=== PATIENT | female | born 1965 | race Caucasian/White ===

== ENCOUNTER 2016-08-20 16:04 | Emergency (ER) | payer OTHER ==
[~2016-08-20 16:04] MED LIST: CELE10TA; COLA100C2; IBUP800T; MULTIVIT; PERC5TAB8; TOPI50TA
--- NOTE | 2016-08-20 18:23 | EDDOCDS ---
Nurse's Notes [facility] Name: Yasmine Rahman Age: 51 yrs Sex: Female : 1965 Arrival Date: 08/20/2016 Time: 16:04 Bed PR Private MD: KEISHA Hines Diagnosis: Visual disturbances Presentation: 08/20 16:12 Presenting complaint: Patient states: cataract surgery at 46 years. Patient states has hs1 hx of blood in back of eye and had to follow up with eye dr from surgery. Patient concerned that it is coming back as her right eye is cloudy and she is having difficulty seeing out of the eye. Patient concerned that she cannot see. Mechanism of Injury: No Mechanism of Injury. The patient reports a positive loss of vision. The patient's loss of vision began gradually. Adult Sepsis Screening: The patient does not have new or worsening altered mentation. Patient's respiratory rate is less than 22. Systolic blood pressure is greater than 100. Patient has a qSOFA score of 0- Negative Sepsis Screen. Suicide/Homicide risk assessment- the patient denies having any suicidal and/or homicidal ideations and does not present with any other emotional, behavioral or mental health complaints. Status: Patient is not a vehicle service agent or dependent. Transition of care: patient was not received from another setting of care. 16:12 Acuity: SHANIQUE Level 3 hs1 16:12 Method Of Arrival: Walkin/Carried/Asstd hs1 Triage Assessment: 16:15 General: Appears in no apparent distress, Behavior is appropriate for age, cooperative. hs1 Pain: Denies pain. HIV screening NA for this visit Offered previously. EENT: Eyes patient reports cloudy vision. 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 none - PMHx: none; - PSHx: Tubal ligation; Hysterectomy (August 29, 2009); Cataract Surgery- Bilateral; Hernia repair- Umbilical; - Social history: Smoking status: Patient states was never smoker of tobacco. No barriers to communication noted, The patient speaks fluent Austrian, Speaks appropriately for age. - Family history: Not pertinent. - : The pt / caregiver states he / she is not on anticoagulants. Home medication list is obtained from the patient. - Exposure Risk Screening:: None identified. Screenin:21 Screening information is obtained from the patient. Fall risk: No risks identified. js13 Assistance ADL's: requires no assistance with activities of daily living. Abuse/DV Screen: The patient / caregiver reports he/she is: not in a situation that causes fear, pain or injury. Nutritional screening: No deficits noted. Advance Directives: There is no active DNR order. home support is adequate. Assessment: 18:21 General: Appears in no apparent distress, comfortable, Behavior is appropriate for age, js13 cooperative. Pain: Denies pain. Neurological: Level of Consciousness is awake, alert. EENT: Sclera/Cornea are clear in outer aspect of conjuctiva of right eye, iris of right eye, inner aspect of conjuctiva of right eye, outer aspect of conjuctiva of left eye, iris of left eye and inner aspect of conjunctiva of left eye. Respiratory: Airway is patent Respiratory effort is even, unlabored, Respiratory pattern is regular, symmetrical. Derm: Skin is pink, warm & dry. Vital Signs: 16:05 BP 159 / 84; Pulse 100; Resp 18 S; Temp 97.6(O); Pulse Ox 96% on R/A; Weight 99.79 kg dd6 (R); Height 5 ft. 3 in. (160.02 cm) (R); 18:20 BP 147 / 87 RA Sitting (auto/lg); Pulse 84; Resp 22; Temp 97.3; Pulse Ox 95% on R/A; ar3 Pain 2/10; 16:05 Body Mass Index 38.97 (99.79 kg, 160.02 cm) dd6 Vitals: 16:05 Log In Time: August 20, 2016 at 16:03. dd6 Visual Acuity: 17:51 Left Eye Visual acuity 20/40, Pupil size 4 mm, Normal, React To Light, Reactive To ml6 Accomodation; Right Eye Visual acuity 20/200, Pupil size 4 mm, Normal, React To Light, Reactive To Accomodation; Both Eyes Visual acuity 20/40; Without Lenses; ED Course: 16:05 Patient visited by Fan Coello PCA. dd6 16:05 [place] [facility] [place] dd6 16:05 Patient moved to Waiting dd6 16:06 Patient moved to Pre RCE dd6 16:14 Triage Initiated hs1 17:09 Patient moved to Triage 1 js13 17:36 [facility] cc10 17:36 Sarthak Rao MD is Attending Physician. cc10 17:36 Patient visited by Barney Sullivan PA-C. cc10 17:36 Patient visited by Barney Sullivan PA-C. cc10 17:55 Patient moved to PR2 / 26 ml6 18:15 Audie Stinson is Referral Physician. cc10 18:21 Patient visited by Becca Valente PCA. ar3 18:21 The patient / caregiver is instructed regarding the plan of care and ED course. js13 18:21 No IV's were initiated during this patient's visit. No procedures done that require js13 assistance. Order Results: There are currently no results for this order. Outcome: 18:15 Discharge ordered by Provider. cc10 18:21 Discharge Assessment: Patient awake, alert and oriented x 3. No cognitive and/or js13 functional deficits noted. Patient verbalized understanding of disposition instructions. patient administered narcotics - no. The following High Risk Discharge criteria are identified: None. Discharged to home ambulatory. Condition: stable. Discharge instructions given to patient, Instructed on discharge instructions, follow up and referral plans. Demonstrated understanding of instructions, Pt was receptive of discharge instructions/ teaching. No special radiology studies were completed. Property :Personal belongings accompany Pt. 18:23 Patient left the ED. js13 Signatures: Fan Coello, SENIOR ACCOUNTS PAYABLE CLERK SENIOR ACCOUNTS PAYABLE CLERK dd6 Bernabe Parker RN RN ml6 Becca Valente, SENIOR ACCOUNTS PAYABLE CLERK SENIOR ACCOUNTS PAYABLE CLERK ar3 Funmi Morales RN RN hs1 Kristi Ortiz RN RN js13 Barney Sullivan PA-C PA-C cc10 MTDD
--- NOTE | 2016-08-20 18:23 | EDDOCDS ---
Physician Documentation [facility] Name: Yasmine Rahman Age: 51 yrs Sex: Female : 1965 Arrival Date: 08/20/2016 Time: 16:04 Bed PR Private MD: [place] [facility] [place]position: 08/20/16 18:15 Discharged to Home/Self Care. Impression: Visual disturbances. - Condition is Stable. - Discharge Instructions: Visual Disturbances. - Medication Reconciliation form. - Follow up: Emergency Department; When: As needed. Follow up: Audie Stinson; When: Tomorrow; Reason: Wound/Symptom Recheck, Recheck today's complaints, Continuance of care. - Problem is an ongoing problem. - Symptoms are unchanged. Historical: - Allergies: no known allergies; - Home Meds: 1. none - PMHx: none; - PSHx: Tubal ligation; Hysterectomy (August 29, 2009); Cataract Surgery- Bilateral; Hernia repair- Umbilical; - Social history: Smoking status: Patient states was never smoker of tobacco. No barriers to communication noted, The patient speaks fluent Occitan, Speaks appropriately for age. - Family history: Not pertinent. - : The pt / caregiver states he / she is not on anticoagulants. Home medication list is obtained from the patient. - Exposure Risk Screening:: None identified. 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 3 in. (160.02 cm) (R); 18:20 BP 147 / 87 RA Sitting (auto/lg); Pulse 84; Resp 22; Temp 97.3; Pulse Ox 95% on R/A; ar3 Pain 2/10; 16:05 Body Mass Index 38.97 (99.79 kg, 160.02 cm) dd6 Visual Acuity: 17:51 Left Eye Visual acuity 20/40, Pupil size 4 mm, Normal, React To Light, Reactive To ml6 Accomodation; Right Eye Visual acuity 20/200, Pupil size 4 mm, Normal, React To Light, Reactive To Accomodation; Both Eyes Visual acuity 20/40; Without Lenses; MDM: 17:42 Visual Acuity ordered. cc10 Signatures: Funmi Morales, RN RN hs1 Kristi OrtizRN RN js13 Barney Sullivan, NELIDA PANori cc10 MTDD
--- NOTE | 2016-08-22 19:23 | EDDOCDS ---
Physician Documentation [facility] Name: Yasmine Rahman Age: 51 yrs Sex: Female : 1965 Arrival Date: 08/20/2016 Time: 16:04 Bed PR Private MD: Donny [facility] Disposition: 08/20/16 18:15 Discharged to Home/Self Care. Impression: Visual disturbances. - Condition is Stable. - Discharge Instructions: Visual Disturbances. - Medication Reconciliation form. - Follow up: Emergency Department; When: As needed. Follow up: Audie Stinson; When: Tomorrow; Reason: Wound/Symptom Recheck, Recheck today's complaints, Continuance of care. - Problem is an ongoing problem. - Symptoms are unchanged. Historical: - Allergies: no known allergies; - Home Meds: 1. none - PMHx: none; - PSHx: Tubal ligation; Hysterectomy (August 29, 2009); Cataract Surgery- Bilateral; Hernia repair- Umbilical; - Social history: Smoking status: Patient states was never smoker of tobacco. No barriers to communication noted, The patient speaks fluent Maltese, Speaks appropriately for age. - Family history: Not pertinent. - : The pt / caregiver states he / she is not on anticoagulants. Home medication list is obtained from the patient. - Exposure Risk Screening:: None identified. 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 3 in. (160.02 cm) (R); 18:20 BP 147 / 87 RA Sitting (auto/lg); Pulse 84; Resp 22; Temp 97.3; Pulse Ox 95% on R/A; ar3 Pain 2/10; 16:05 Body Mass Index 38.97 (99.79 kg, 160.02 cm) dd6 Visual Acuity: 17:51 Left Eye Visual acuity 20/40, Pupil size 4 mm, Normal, React To Light, Reactive To ml6 Accomodation; Right Eye Visual acuity 20/200, Pupil size 4 mm, Normal, React To Light, Reactive To Accomodation; Both Eyes Visual acuity 20/40; Without Lenses; MDM: 17:42 Visual Acuity ordered. cc10 08/21 12:15 T-Sheet-- Draft Copy was scanned into [employer] and attached to record. gb Signatures: Janneth Snow, Reg Reg gb Funmi Morales RN RN hs1 Kristi OrtizRN RN js13 Barney Sullivan, TERESOC PAMoonC cc10 The chart was reviewed and I authenticate all verbal orders and agree with the evaluation and treatment provided.Attachments: 12:15 T-Sheet-- Draft Copy gb Chart Complete MTDD
--- NOTE | 2016-08-22 19:23 | EDDOCDS ---
Nurse's Notes [facility] Name: Yasmine Rahman Age: 51 yrs Sex: Female : 1965 Arrival Date: 08/20/2016 Time: 16:04 Bed PR Private MD: KEISHA Hines Diagnosis: Visual disturbances Presentation: 08/20 16:12 Presenting complaint: Patient states: cataract surgery at 46 years. Patient states has hs1 hx of blood in back of eye and had to follow up with eye dr from surgery. Patient concerned that it is coming back as her right eye is cloudy and she is having difficulty seeing out of the eye. Patient concerned that she cannot see. Mechanism of Injury: No Mechanism of Injury. The patient reports a positive loss of vision. The patient's loss of vision began gradually. Adult Sepsis Screening: The patient does not have new or worsening altered mentation. Patient's respiratory rate is less than 22. Systolic blood pressure is greater than 100. Patient has a qSOFA score of 0- Negative Sepsis Screen. Suicide/Homicide risk assessment- the patient denies having any suicidal and/or homicidal ideations and does not present with any other emotional, behavioral or mental health complaints. 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 Transition of care: patient was not received from another setting of care. 16:12 Acuity: SHANIQUE Level 3 hs1 16:12 Method Of Arrival: Walkin/Carried/Asstd hs1 Triage Assessment: 16:15 General: Appears in no apparent distress, Behavior is appropriate for age, cooperative. hs1 Pain: Denies pain. HIV screening NA for this visit Offered previously. EENT: Eyes patient reports cloudy vision. 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 none - PMHx: none; - PSHx: Tubal ligation; Hysterectomy (August 29, 2009); Cataract Surgery- Bilateral; Hernia repair- Umbilical; - Social history: Smoking status: Patient states was never smoker of tobacco. No barriers to communication noted, The patient speaks fluent Iraqi, Speaks appropriately for age. - Family history: Not pertinent. - : The pt / caregiver states he / she is not on anticoagulants. Home medication list is obtained from the patient. - Exposure Risk Screening:: None identified. Screenin:21 Screening information is obtained from the patient. Fall risk: No risks identified. js13 Assistance ADL's: requires no assistance with activities of daily living. Abuse/DV Screen: The patient / caregiver reports he/she is: not in a situation that causes fear, pain or injury. Nutritional screening: No deficits noted. Advance Directives: There is no active DNR order. home support is adequate. Assessment: 18:21 General: Appears in no apparent distress, comfortable, Behavior is appropriate for age, js13 cooperative. Pain: Denies pain. Neurological: Level of Consciousness is awake, alert. EENT: Sclera/Cornea are clear in outer aspect of conjuctiva of right eye, iris of right eye, inner aspect of conjuctiva of right eye, outer aspect of conjuctiva of left eye, iris of left eye and inner aspect of conjunctiva of left eye. Respiratory: Airway is patent Respiratory effort is even, unlabored, Respiratory pattern is regular, symmetrical. Derm: Skin is pink, warm & dry. Vital Signs: 16:05 BP 159 / 84; Pulse 100; Resp 18 S; Temp 97.6(O); Pulse Ox 96% on R/A; Weight 99.79 kg dd6 (R); Height 5 ft. 3 in. (160.02 cm) (R); 18:20 BP 147 / 87 RA Sitting (auto/lg); Pulse 84; Resp 22; Temp 97.3; Pulse Ox 95% on R/A; ar3 Pain 2/10; 16:05 Body Mass Index 38.97 (99.79 kg, 160.02 cm) dd6 Vitals: 16:05 Log In Time: August 20, 2016 at 16:03. dd6 Visual Acuity: 17:51 Left Eye Visual acuity 20/40, Pupil size 4 mm, Normal, React To Light, Reactive To ml6 Accomodation; Right Eye Visual acuity 20/200, Pupil size 4 mm, Normal, React To Light, Reactive To Accomodation; Both Eyes Visual acuity 20/40; Without Lenses; ED Course: 16:05 Patient visited by Fan Coello PCA. dd6 16:05 Donny [facility] is Private Physician. dd6 16:05 Patient moved to Waiting dd6 16:06 Patient moved to Pre RCE dd6 16:14 Triage Initiated hs1 17:09 Patient moved to Triage 1 js13 17:36 [facility] cc[facility] 17:36 Sarthak Rao MD is Attending Physician. cc10 17:36 Patient visited by Barney Sullivan PA-C. cc10 17:36 Patient visited by Barney Sullivan PA-C. cc10 17:55 Patient moved to PR2 / 26 ml6 18:15 Audie Stinson is Referral Physician. cc10 18:21 Patient visited by Becca Valente PCA. ar3 18:21 The patient / caregiver is instructed regarding the plan of care and ED course. js13 18:21 No IV's were initiated during this patient's visit. No procedures done that require [facility] assistance. 08/21 12:15 T-Sheet-- Draft Copy was scanned into [employer] and attached to record. Order Results: There are currently no results for this order. Outcome: 08/20 18:15 Discharge ordered by Provider. cc10 18:21 Discharge Assessment: Patient awake, alert and oriented x 3. No cognitive and/or js13 functional deficits noted. Patient verbalized understanding of disposition instructions. patient administered narcotics - no. The following High Risk Discharge criteria are identified: None. Discharged to home ambulatory. Condition: stable. Discharge instructions given to patient, Instructed on discharge instructions, follow up and referral plans. Demonstrated understanding of instructions, Pt was receptive of discharge instructions/ teaching. No special radiology studies were completed. Property :Personal belongings accompany Pt. 18:23 Patient left the ED. js13 Signatures: Janneth Snow, Reg Reg gb Fan Coello, SALES PROMOTION COORDINATOR SALES PROMOTION COORDINATOR dd6 Bernabe Parker, RN RN ml6 Becca Valente, DEACON SALES PROMOTION COORDINATOR ar3 Funmi Morales RN RN hs1 Kristi Ortiz RN RN js13 Barney Sullivan PA-C PA-C cc10 Chart Complete MTDD
--- NOTE | 2016-08-22 19:23 | EDDOCDS ---
Physician Documentation [facility] Name: Yasmine Rahman Age: 51 yrs Sex: Female : 1965 Arrival Date: 08/20/2016 Time: 16:04 Bed PR Private MD: Donny [facility] [place] Disposition: 08/20/16 18:15 Discharged to Home/Self Care. Impression: Visual disturbances. - Condition is Stable. - Discharge Instructions: Visual Disturbances. - Medication Reconciliation form. - Follow up: Emergency Department; When: As needed. Follow up: Audie Stinson; When: Tomorrow; Reason: Wound/Symptom Recheck, Recheck today's complaints, Continuance of care. - Problem is an ongoing problem. - Symptoms are unchanged. Historical: - Allergies: no known allergies; - Home Meds: 1. none - PMHx: none; - PSHx: Tubal ligation; Hysterectomy (August 29, 2009); Cataract Surgery- Bilateral; Hernia repair- Umbilical; - Social history: Smoking status: Patient states was never smoker of tobacco. No barriers to communication noted, The patient speaks fluent Maori, Speaks appropriately for age. - Family history: Not pertinent. - : The pt / caregiver states he / she is not on anticoagulants. Home medication list is obtained from the patient. - Exposure Risk Screening:: None identified. 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 3 in. (160.02 cm) (R); 18:20 BP 147 / 87 RA Sitting (auto/lg); Pulse 84; Resp 22; Temp 97.3; Pulse Ox 95% on R/A; ar3 Pain 2/10; 16:05 Body Mass Index 38.97 (99.79 kg, 160.02 cm) dd6 Visual Acuity: 17:51 Left Eye Visual acuity 20/40, Pupil size 4 mm, Normal, React To Light, Reactive To ml6 Accomodation; Right Eye Visual acuity 20/200, Pupil size 4 mm, Normal, React To Light, Reactive To Accomodation; Both Eyes Visual acuity 20/40; Without Lenses; MDM: 17:42 Visual Acuity ordered. cc10 08/21 12:15 T-Sheet-- Draft Copy was scanned into [employer] and attached to record. gb Signatures: Janneth Snow, Reg Reg gb Funmi Morales RN RN hs1 Kristi OrtizRN RN js13 Barney Sullivan, TERESOC PAMoonC cc10 The chart was reviewed and I authenticate all verbal orders and agree with the evaluation and treatment provided.Attachments: 12:15 T-Sheet-- Draft Copy gb Chart Complete MTDD
== END 2016-08-20 18:32 | disposition home or self-care (01) ==
LOC: M ED 16:04
DX: H53.9 Unspecified visual disturbance (principal)

== ENCOUNTER → 2018-03-10 | Outpatient (CLI) | payer OTHER | LOC: M LRY 18:38 | DX: S99.921A Unspecified injury of right foot, initial encounter (principal); M77.31 Calcaneal spur, right foot; M76.60 Achilles tendinitis, unspecified leg; Y92.89 Other specified places as the place of occurrence of the external cause; Y93.89 Activity, other specified; Y99.8 Other external cause status; X58.XXXA Exposure to other specified factors, initial encounter | CPT/HCPCS: 73630; G0463 ==

== ENCOUNTER 2021-05-30 19:36 | Inpatient (IN) | payer OTHER ==
[~2021-05-30] VITALS: Ht 160 cm; Wt 100.4 kg
[2021-05-30 20:37] LABS: HEMATOCRIT 42.7 % (36.0-47.0); HEMOGLOBIN 12.8 g/dl (12.0-15.5); MEAN CORPUSCULAR HEMOGLOBIN 18.9 pg (27.0-33.0); MEAN CORPUSCULAR VOLUME 63.2 fl (80.0-96.0); PLATELET COUNT, AUTOMATED 149 10^3/uL (150-450); RED BLOOD COUNT 6.76 10^6/uL (4.00-5.40); WHITE BLOOD COUNT 5.1 10^3/uL (4.0-10.0)
--- NOTE | 2021-05-30 20:39 | REPVR ---
PROCEDURE INFORMATION: Exam: XR Chest Exam date and time: 05/30/2021 8:06 PM Age: 56 years old Clinical indication: Cough; Additional info: Coronavirus workup TECHNIQUE: Imaging protocol: XR of the chest. Views: 1 view. COMPARISON: CT ABD PELVIS W/O CONTRAST 12/06/2014 5:54 PM FINDINGS: Lungs: Bilateral pulmonary infiltrates with right mid lung atelectasis or scar. Pleural spaces: Unremarkable. No pleural effusion. No pneumothorax. Heart/Mediastinum: Borderline cardiomegaly. Diaphragm: Elevation of the right hemidiaphragm. Bones/joints: Unremarkable. Soft tissues: There are moderately generous overlying soft tissues. IMPRESSION: 1. Mild bilateral pulmonary infiltrates with right mid lung atelectasis or scar. 2. Borderline cardiomegaly. Electronically signed by: Kal Frost On 05/30/2021 20:39:02 PM
[2021-05-30 20:54] LABS: INR 0.97; PROTHROMBIN TIME 13.3 SECONDS (12.7-14.5)
[2021-05-30 20:55] LABS: PARTIAL THROMBOPLASTIN TIME 39.8 SECONDS (25.9-37.0)
[2021-05-30 20:57] LABS: D-DIMER QUANT 1009.06 ng/ml (<500)
[2021-05-30 20:58] LABS: ALBUMIN 3.3 GM/DL (3.2-5.2); ALT/SGPT 40 U/L (12-78); BILIRUBIN,TOTAL 0.3 MG/DL (0.2-1.0); BLOOD UREA NITROGEN 12 MG/DL (7-18); C REACTIVE PROTEIN QUANTITATIV 9.03 MG/DL (0.00-0.30); CALCIUM LEVEL 8.3 MG/DL (8.5-10.1); CARBON DIOXIDE LEVEL 26 MEQ/L (21-32); CHLORIDE LEVEL 109 MEQ/L (98-107); CK-MB VALUE MASS 1.1 NG/ML (<3.6); CPK CREATINE PHOSPHOKINASE 416 U/L (26-192); FERRITIN 1503 NG/ML (8-252); GLOMERULAR FILTRATION RATE > 60.0 (>51); GLUCOSE, FASTING 121 MG/DL (70-100); LDH LACTATE DEHYDROGENASE 384 U/L (84-246); MAGNESIUM LEVEL 2.3 MG/DL (1.8-2.4); MB/CK RELATIVE INDEX 0.26 (< OR =4); POTASSIUM SERUM 3.4 MEQ/L (3.5-5.1); SODIUM LEVEL 140 MEQ/L (136-145); TOTAL PROTEIN 6.8 GM/DL (6.4-8.2); TROPONIN I < 0.02 NG/ML (< 0.10)
[2021-05-30 21:00] LABS: ATYPICAL LYMPH 3 % (0-5); LYMPHOCYTES 15 % (16-44); MONOCYTES 2 % (0-5); NEUTROPHILS 76 % (28-66)
[2021-05-30 21:01] LABS: MICROCYTOSIS 3+
[2021-05-30 21:02] LABS: ANISOCYTOSIS 1+; PLATELET ESTIMATE NORMAL (NORMAL)
[2021-05-30] MEDS ORDERED: cefTRIAXone SOD 1 GM in D5W MINI-BAG PLUS 50 ML IV ONE (21:30)
[2021-05-30] MEDS ORDERED: AZITHROMYCIN INJ 500 MG, VIAL MATE ADAPTER 1 EACH in NS 250 ML IV ONE (21:30)
[2021-05-30] MEDS ORDERED: ACETAMINOPHEN TAB 650MG DOSE (2X325MG) PO ONE (22:25)
[2021-05-30] MEDS ORDERED: MUCI1LIQ3 PO (23:14)
[2021-05-30] MEDS ORDERED: HOME MED LIST COMPLETE! XX SCH (23:15)
[2021-05-30] MEDS ORDERED: POTASSIUM CHLORIDE 10MEQ SR TABLET PO ONE (23:30)
--- OUTSIDE RECORDS SUMMARY | 2021-05-30 23:52 | CCD ---
Author Author [facility] Address Unknown Phone Unavailable Support Name Relationship Address Phone UE Next Of Kin Unknown Unavailable Marlo MIRANDA JR Next Of Kin [address] [place] [address] Re-disclosure Warning The records that you are about to access may contain information from federally-assisted alcohol or drug abuse programs. If such information is present, then the following federally mandated warning applies: This information has been disclosed to you from records protected by federal confidentiality rules (42 CFR part 2). The federal rules prohibit you from making any further disclosure of this information unless further disclosure is expressly permitted by the written consent of the person to whom it pertains or as otherwise permitted by 42 CFR part 2. A general authorization for the release of medical or other information is NOT sufficient for this purpose. The Federal rules restrict any use of the information to criminally investigate or prosecute any alcohol or drug abuse patient.The records that you are about to access may contain highly sensitive health information, the redisclosure of which is protected by Article 27-F of the [facility] Public Health law. If you continue you may have access to information: Regarding HIV / AIDS; Provided by facilities licensed or operated by the [facility] Office of Mental Health; or Provided by the [facility] Office for People With Developmental Disabilities. If such information is present, then the following [facility] mandated warning applies: This information has been disclosed to you from confidential records which are protected by state law. State law prohibits you from making any further disclosure of this information without the specific written consent of the person to whom it pertains, or as otherwise permitted by law. Any unauthorized further disclosure in violation of state law may result in a fine or care home sentence or both. A general authorization for the release of medical or other information is NOT sufficient authorization for further disc losure. Family History Family Member Name Family Member Gender Family Member Status Date o f Status Description Data Source(s) Unknown Unknown Problem [facility] ([facility] Medications No Information Insurance Providers Payer name Policy type / Coverage type Policy ID Covered democrat ID Covered democrat's relationship to hernandez Policy Hernandez Plan Information [place] [id number] [facility] [id number] [employer] [place] [id number] S [id number] ANSI-Not a Secondary Insurance [id number] [facility] [id number] [facility] [id number] Prime Commercial [id number] Family Dependent [employer] [place] P [id number] S [id number] N [employer] WILLIAM-O/P [id number] Problems, Conditions, and Diagnoses No Information Surgeries/Procedures No Information Results No Information Social History No Information
[2021-05-31] VITALS (11 sets, daily range): BP systolic 95–140; BP diastolic 52–74; O2SAT 79–93
--- NOTE | 2021-05-31 00:25 | HPEPDOC ---
[facility] Medical History & Physical Date of Admission May 31, 2021 Date of Service: May 31, 2021 History and Physical CHIEF COMPLAINT: Shortness of breath HISTORY OF PRESENT ILLNESS: 56-year-old female presents because of a 4-5 day history of gradually worsening shortness of breath associated with a cough. Endorses recent history of RSV infection amongst coworkers. She denies any fevers or chills. She endorses her appetite has been poor. Her shortness of breath has worsened to the point where she felt she needed to come to the emergency department. In the ED she was saturating around 88% at rest and required supplemental oxygen. She improved with 4 L of oxygen by nasal cannula to 92-94%. Chest x-ray shows bilateral infiltrates. Patient denies any fevers or chills and she hasn't been febrile while here. She has no leukocytosis. 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 REVIEW OF SYSTEMS: 10 point review of systems complete all negative otherwise stated in HPI HOME MEDICATIONS: Please see below. PHYSICAL EXAMINATION: Constitutional: Awake and alert, in no apparent distress ENT: Sclera are clear. Mucosa is moist. Respiratory: Lungs diminished breath sounds bilaterally. No use of accessory muscles. On 4 L of oxygen by nasal cannula. Able to speak in full sentences. Cardiovascular: RRR S1 and S2 are normal Gastrointestinal: Abdomen is soft, non distended, non tender, BS present. Musculoskeletal: No lower extremity edema. Neurologic: No focal neurological deficit. Mental Status: A&O x3, normal affect Skin: No visible rashes LABORATORY DATA: See below. IMAGING: See chart MICROBIOLOGY: Please see below. ASSESSMENT/PLAN 56-year-old female presents with shortness of breath found to have Covid 19 infection requiring supplemental oxygen admitted for further medical management. # Hypoxic respiratory failure 2/2 Covid 19 infection with possible superimposed bacterial pneumonia: - Has multiple risk factors for poor outcomes with Covid 19 infection such as obesity, and diabetes. - Initial inflammatory markers elevated. Trend inflammatory markers. - IV Decadron daily. Day 10 of symptoms, will start rimdasivir. Lovenox. O2 target 90% or better. - Started IV ceftriaxone and azithromycin. Follow blood cultures. follow-up pro- calcitonin if negative can consider DC Abx. # DVT prophylaxis: Lizzy Alves Hospitalist Vital Signs Vital Signs Date Time Temp Pulse Resp B/P (MAP) Pulse Ox O2 Delivery O2 Flow Rate FiO2 05/30/21 23:45 98.7 82 20 95 Nasal Cannula 4.0 05/30/21 23:30 135/65 (88) Laboratory Data Labs 24H Laboratory Tests 2 05/30/21 19:57: Prothrombin Time 13.3, Prothromb Time International Ratio 0.97, Activated Partial Thromboplast Time 39.8H, Fibrinogen 550H, D-Dimer, Quantitative 1009.06H, Anion Gap 5L, Glomerular Filtration Rate > 60.0, Calcium Level 8.3L, Magnesium Level 2.3, Ferritin 1503H, Total Bilirubin 0.3, Aspartate Amino Transf (AST/SGOT) 50H, Alanine Aminotransferase (ALT/SGPT) 40, Alkaline Phosphatase 101, Lactate Dehydrogenase 384H, Total Creatine Kinase 416H, Creatine Kinase MB 1.1, Creatine Kinase MB Relative Index 0.26, Troponin I < 0.02, C-Reactive Protein, Quantitative 9.03H, Total Protein 6.8, Albumin 3.3, Albumin/Globulin Ratio 0.9L 05/30/21 19:58: Neutrophils (%) (Auto) , Nucleated Red Blood Cells % (auto) 0.0, Neutrophils 76H, Band Neutrophils 4, Lymphocytes (Manual) 15L, Monocytes (Manual) 2, Atypical Lymphocytes 3, Anisocytosis 1+, Microcytosis 3+, Platelet Estimate NORMAL, Lactic Acid Level 1.3 CBC/BMP Laboratory Tests 05/30/21 19:57 05/30/21 19:58 Microbiology Microbiology 05/30/21 Respiratory Virus Panel (PCR) ([facility]) - Final, Complete SARS-CoV-2 (COVID 19) 05/30/21 Blood Culture, Received Pending 05/30/21 Blood Culture, Received Pending Home Medications Scheduled PRN Guaifenesin/Dextromethorphan (Mucinex Fast-Max Dm Max Liquid) 180 Ml Liquid, 20 ML PO Q4H PRN for CONGESTION/COUGH Allergies Coded Allergies: No Known Allergies (Unverified , 05/30/21) STEPHANIE ALVES MD May 31, 2021 00:25
[2021-05-31] MEDS ORDERED: REMDESIVIR 200 MG in NS 250 ML IV ONE (02:00)
[2021-05-31 03:08] LABS: APPEARANCE, URINE HAZY (CLEAR); BACTERIA, URINE AUTO 1+ (NEGATIVE); BILIRUBIN, URINE AUTO NEGATIVE (NEGATIVE); BLOOD, URINE BLOOD NEGATIVE (NEGATIVE); COLOR, URINE AMBER (YELLOW); GLUCOSE, URINE (UA) AUTO NEGATIVE (NEGATIVE); KETONE, URINE AUTO 1+ mg/dL (NEGATIVE); LEUKOCYTE ESTERASE, URINE AUTO NEGATIVE (NEGATIVE); MUCUS, URINE SMALL (NEGATIVE); NITRITE, URINE AUTO NEGATIVE (NEGATIVE); PROTEIN, URINE AUTO 2+ mg/dL (NEGATIVE); RBC, URINE AUTO 0 /HPF (0-3); SQUAMOUS EPITHELIAL CELL UR AU 1 /HPF (0-6); WBC, URINE AUTO 4 /HPF (0-3)
[2021-05-31] MEDS ORDERED: SODIUM CHLORIDE 0.9% INJ 10 ML SYR IV ONE (04:00)
--- NOTE | 2021-05-31 05:42 | ECGEPIP ---
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
[2021-05-31] MEDS ORDERED: NS 1,000 ML IV SCH (05:55)
[2021-05-31] MEDS: IPRATROPIUM 0.5MG/ALBUTEROL 2.5MG INH SOL UD 3ML (DUONEB) NEB SCH ×3 (08:14→20:00)
[2021-05-31] MEDS: guaiFENesin ER 600 MG TAB PO SCH ×2 (08:44→20:54)
[2021-05-31] MEDS: ENOXAPARIN 40MG/0.4ML SYRINGE (J1650 PER 10MG) SC SCH (08:44)
[2021-05-31] MEDS: dexameTHASONE 4 MG/ML 1ML VIAL (J1100 PER 1MG) IV SCH (08:44)
[2021-05-31] MEDS: BENZONATATE 100MG CAPSULE PO PRN (09:48)
[2021-05-31] MEDS: ACETAMINOPHEN TAB 650MG DOSE (2X325MG) PO PRN ×3 (09:49→21:23)
[2021-05-31 10:45] LABS: HEMATOCRIT 41.8 % (36.0-47.0); HEMOGLOBIN 12.6 g/dl (12.0-15.5); MEAN CORPUSCULAR HEMOGLOBIN 19.2 pg (27.0-33.0); MEAN CORPUSCULAR HGB CONC 30.1 g/dl (32.0-36.5); MEAN CORPUSCULAR VOLUME 63.6 fl (80.0-96.0); PLATELET COUNT, AUTOMATED 147 10^3/uL (150-450); RED BLOOD COUNT 6.57 10^6/uL (4.00-5.40); WHITE BLOOD COUNT 3.7 10^3/uL (4.0-10.0)
[2021-05-31 10:58] LABS: ALBUMIN 2.9 GM/DL (3.2-5.2); ALT/SGPT 39 U/L (12-78); BILIRUBIN,TOTAL 0.2 MG/DL (0.2-1.0); BLOOD UREA NITROGEN 11 MG/DL (7-18); CALCIUM LEVEL 8.3 MG/DL (8.5-10.1); CARBON DIOXIDE LEVEL 27 MEQ/L (21-32); CHLORIDE LEVEL 110 MEQ/L (98-107); CREATININE FOR GFR 0.44 MG/DL (0.55-1.30); GLOMERULAR FILTRATION RATE > 60.0 (>51); GLUCOSE, FASTING 143 MG/DL (70-100); SODIUM LEVEL 142 MEQ/L (136-145); TOTAL PROTEIN 6.4 GM/DL (6.4-8.2)
[2021-05-31] MEDS: ALBUTEROL SULFATE 2.5 MG/0.5 ML INH NEB SOLN NEB PRN ×2 (13:44→20:37)
[2021-05-31] MEDS: IBUPROFEN 600MG TAB PO SCH (17:08)
[2021-05-31] MEDS: guaiFENesin/CODEINE SYRUP 5 ML UDC PO SCH (17:08)
--- NOTE | 2021-05-31 18:13 | IPNPDOC ---
Date Seen The patient was seen on 05/31/21. Progress Note SUBJECTIVE: Pleuritic pain with coughing was severe, started Robitussin with codeine. She is fluctuating between 67 liters of high flow oxygen, low 90s for saturation. She denies fevers, chills, nausea, vomiting, abdominal pain. OBJECTIVE: PHYSICAL EXAMINATION: Constitutional: Awake and alert, in no apparent distress ENT: Sclera are clear. Mucosa is moist. Respiratory: Lungs diminished breath sounds bilaterally. No wheezing, mild rhonchi bilaterally Cardiovascular: RRR S1 and S2 are normal Gastrointestinal: Obese, Abdomen is soft, non distended, non tender, BS present. Musculoskeletal: No lower extremity edema. Neurologic: No focal neurological deficit. Mental Status: A&O x3, normal affect Skin: No visible rashes LABORATORY DATA: See below. IMAGING: See chart MICROBIOLOGY: Please see below. ASSESSMENT: 56-year-old female presents with shortness of breath found to have Covid 19 infection requiring supplemental oxygen admitted for further medical management. PLAN: Acute hypoxic respiratory failure 2/2 Covid 19 infection - Has multiple risk factors for poor outcomes with Covid 19 infection such as obesity, and diabetes. - Initial inflammatory markers elevated. Trend inflammatory markers. - IV Decadron daily. Remdesivir. Lovenox. O2 target 90% or better. - D/c IV ceftriaxone and azithromycin, procalcitonin low. Follow blood cultures. Acute thrombocytopenia likely 2/2 to infection above -No s/s of bleeding -F/u CBC daily DVT prophylaxis: Lovenox DISPOSITION: Inpatient admission. PT/OT. Plan is discharge home when medically improved. VS, I&O, 24H, Fishbone Vital Signs/I&O Vital Signs Date Time Temp Pulse Resp B/P (MAP) Pulse Ox O2 Delivery O2 Flow Rate FiO2 05/31/21 17:10 92 High Flow Cannula 7.0 05/31/21 16:14 109/52 (71) 05/31/21 13:57 98.1 67 21 I&O- Last 24 Hours up to 6 AM 05/31/21 06:00 Intake Total 545 ml Output Total 300 ml Balance 245 ml Laboratory Data 24H LABS Laboratory Tests 2 05/30/21 19:57: Prothrombin Time 13.3, Prothromb Time International Ratio 0.97, Activated Partial Thromboplast Time 39.8H, Fibrinogen 550H, D-Dimer, Quantitative 1009.06H, Anion Gap 5L, Glomerular Filtration Rate > 60.0, Calcium Level 8.3L, Magnesium Level 2.3, Ferritin 1503H, Total Bilirubin 0.3, Aspartate Amino Transf (AST/SGOT) 50H, Alanine Aminotransferase (ALT/SGPT) 40, Alkaline Phosphatase 101, Lactate Dehydrogenase 384H, Total Creatine Kinase 416H, Creatine Kinase MB 1.1, Creatine Kinase MB Relative Index 0.26, Troponin I < 0.02, C-Reactive Protein, Quantitative 9.03H, Total Protein 6.8, Albumin 3.3, Albumin/Globulin Ratio 0.9L 05/30/21 19:58: Neutrophils (%) (Auto) , Nucleated Red Blood Cells % (auto) 0.0, Neutrophils 76H, Band Neutrophils 4, Lymphocytes (Manual) 15L, Monocytes (Manual) 2, Atypical Lymphocytes 3, Anisocytosis 1+, Microcytosis 3+, Platelet Estimate NORMAL, Lactic Acid Level 1.3, Procalcitonin <0.05 05/31/21 02:47: Urine Color LAVERN, Urine Appearance HAZY, Urine pH 5.0, Urine Specific Sterling 1.030, Urine Protein 2+H, Urine Glucose (Auto)(UA) NEGATIVE, Urine Ketones (Auto) 1+H, Urine Blood NEGATIVE, Urine Nitrite NEGATIVE, Urine Bilirubin NEGATIVE, Urine Urobilinogen 4.0H, Urine Leukocyte Esterase (Auto) NEGATIVE, Urine WBC (Auto) 4H, Urine RBC (Auto) 0, Urine Hyaline Casts (Auto) 0, Urine Bacteria (Auto) 1+H, Urine Squamous Epithelial Cells 1, Urine Mucus (Auto) SMALL, Urine Sperm (Auto) 05/31/21 07:23: Anion Gap 5L, Glomerular Filtration Rate > 60.0, Calcium Level 8.3L, Total Bilirubin 0.2, Aspartate Amino Transf (AST/SGOT) 48H, Alanine Aminotransferase (ALT/SGPT) 39, Alkaline Phosphatase 94, Total Protein 6.4, Albumin 2.9L, Albumin/Globulin Ratio 0.8L, Nucleated Red Blood Cells % (auto) 0.0 CBC/BMP Laboratory Tests 05/30/21 19:57 05/30/21 19:58 05/31/21 07:23 Microbiology Microbiology 05/30/21 Respiratory Virus Panel (PCR) ([facility]) - Final, Complete SARS-CoV-2 (COVID 19) 05/30/21 Blood Culture, Received Pending 05/30/21 Blood Culture, Received Pending Ree Crockett MD May 31, 2021 18:13
[2021-05-31] MEDS ORDERED: cefTRIAXone SOD 1 GM in D5W MINI-BAG PLUS 50 ML IV SCH (21:00)
[2021-05-31] MEDS ORDERED: AZITHROMYCIN INJ 500 MG, VIAL MATE ADAPTER 1 EACH in NS 250 ML IV SCH (22:00)
[2021-06-01] VITALS (16 sets, daily range): BP systolic 108–147; BP diastolic 51–78; O2SAT 84–91
[2021-06-01] MEDS: guaiFENesin/CODEINE SYRUP 5 ML UDC PO SCH ×4 (00:36→17:27)
[2021-06-01] MEDS: IBUPROFEN 600MG TAB PO SCH ×4 (00:37→17:28)
[2021-06-01] MEDS: IPRATROPIUM 0.5MG/ALBUTEROL 2.5MG INH SOL UD 3ML (DUONEB) NEB SCH ×4 (01:29→21:10)
[2021-06-01] MEDS: REMDESIVIR 100 MG in NS 250 ML IV SCH (02:00)
[2021-06-01] MEDS: SODIUM CHLORIDE 0.9% INJ 10 ML SYR IV SCH (03:27)
[2021-06-01] MEDS: hydrOXYzine 25 MG TAB PO PRN ×2 (04:58→22:12)
[2021-06-01] MEDS: ALBUTEROL SULFATE 2.5 MG/0.5 ML INH NEB SOLN NEB PRN (04:58)
[2021-06-01 05:13] LABS: ABG BASE EXCESS 1.1 (-2.0-2.0); ABG HCO3 25.5 MEQ/L (22.0-26.0); ABG O2 SATURATION 89.4 % (95.0-99.0); ABG PARTIAL PRESSURE CO2 39.8 mmHg (35.0-45.0); ABG PARTIAL PRESSURE O2 56.7 mmHg (75.0-100.0); ABG STANDARD HCO3 25.2 MEQ/L (22.0-26.0); ABG TOTAL CO2 26.7 MEQ/L (22.0-29.0); ABG pH (ARTERIAL) 7.424 UNITS (7.350-7.450)
--- NOTE | 2021-06-01 05:55 | REPVR ---
PROCEDURE INFORMATION: Exam: XR Chest Exam date and time: 06/01/2021 4:31 AM Age: 56 years old Clinical indication: Other: Desat; Additional info: Desat; Interval check TECHNIQUE: Imaging protocol: XR of the chest. Views: 1 view. COMPARISON: CR PORTABLE CHEST X-RAY 05/30/2021 7:47 PM FINDINGS: Lungs: There is markedly low lung volume with significant central perihilar prominence. There is diffuse ground-glass haziness. There is suggestion of some peripheral infiltrates. Pleural spaces: Unremarkable. No pleural effusion. No pneumothorax. Heart/Mediastinum: The heart is enlarged. Bones/joints: Unremarkable. IMPRESSION: Cardiomegaly with markedly low lung volume and parenchymal lung changes as described above which could be secondary to CHF however underlying infiltrates particularly some patchy peripheral infiltrates cannot be completely excluded. Correlation with patient's clinical history and symptoms is needed. If indicated CT of the chest may be considered for further evaluation. There is overall mild interval worsened aeration of the lungs as compared to the prior exam. Electronically signed by: Mj Meza On 06/01/2021 05:54:09 AM
[2021-06-01] MEDS ORDERED: FUROSEMIDE 20MG/2ML VIAL (J1940) IV ONE (06:05)
[2021-06-01 06:41] LABS: BASO % 0.1 % (0.0-1.0); HEMATOCRIT 42.5 % (36.0-47.0); HEMOGLOBIN 12.9 g/dl (12.0-15.5); LYMPH # 1.9 10^3/uL (1.5-5.0); LYMPH % 22.1 % (24.0-44.0); MEAN CORPUSCULAR HEMOGLOBIN 19.1 pg (27.0-33.0); MEAN CORPUSCULAR HGB CONC 30.4 g/dl (32.0-36.5); MEAN CORPUSCULAR VOLUME 63.1 fl (80.0-96.0); MONO # 0.6 10^3/uL (0.0-0.8); MONO % 6.3 % (2.0-8.0); NEUTROPHILS # 6.2 10^3/uL (1.5-8.5); NEUTROPHILS % 70.8 % (36.0-66.0); PLATELET COUNT, AUTOMATED 194 10^3/uL (150-450); RED BLOOD COUNT 6.74 10^6/uL (4.00-5.40); WHITE BLOOD COUNT 8.7 10^3/uL (4.0-10.0)
[2021-06-01 07:10] LABS: ALBUMIN 2.7 GM/DL (3.2-5.2); ALT/SGPT 37 U/L (12-78); BILIRUBIN,DIRECT 0.1 MG/DL (0.0-0.2); BILIRUBIN,TOTAL 0.3 MG/DL (0.2-1.0); BLOOD UREA NITROGEN 16 MG/DL (7-18); CALCIUM LEVEL 8.8 MG/DL (8.5-10.1); CARBON DIOXIDE LEVEL 27 MEQ/L (21-32); CHLORIDE LEVEL 114 MEQ/L (98-107); CREATININE FOR GFR 0.38 MG/DL (0.55-1.30); GLOMERULAR FILTRATION RATE > 60.0 (>51); GLUCOSE, FASTING 109 MG/DL (70-100); MAGNESIUM LEVEL 2.3 MG/DL (1.8-2.4); NT-PRO BNP 358 PG/ML (<125); POTASSIUM SERUM 3.2 MEQ/L (3.5-5.1); SODIUM LEVEL 146 MEQ/L (136-145); TOTAL PROTEIN 6.6 GM/DL (6.4-8.2)
[2021-06-01] MEDS ORDERED: POTASSIUM CHLORIDE 10MEQ SR TABLET PO ONE (07:25)
[2021-06-01] MEDS: guaiFENesin ER 600 MG TAB PO SCH ×2 (08:23→21:58)
[2021-06-01] MEDS: BARICITINIB 2MG TABLET (OLUMIANT) FOR EUA PO SCH (08:24)
[2021-06-01] MEDS: dexameTHASONE 4 MG/ML 1ML VIAL (J1100 PER 1MG) IV SCH (08:24)
[2021-06-01] MEDS: ENOXAPARIN 40MG/0.4ML SYRINGE (J1650 PER 10MG) SC SCH (08:24)
--- NOTE | 2021-06-01 08:32 | REP ---
INDICATION: worsening hypoxia, COVID 19, r/o PE. COMPARISON: Radiograph 06/01/2021. TECHNIQUE: CT angiogram chest performed following the intravenous administration of 100 cc of Isovue 370. Sagittal and coronal reconstruction images are performed. FINDINGS: Lungs: There are diffuse bilateral infiltrates. Mediastinum: No adenopathy. Pulmonary arteries: No evidence of pulmonary embolism. Sue: No adenopathy. Axilla: No adenopathy. Pleura: No effusion. Heart: Mildly enlarged. Thoracic aorta: No aneurysm or dissection. There is an aberrant right subclavian artery. Upper abdominal structures: There is a small hiatal hernia. There are partially visualized bilateral renal cysts. Visualized osseous structures: There are diffuse degenerative changes. There is no acute compression deformity, a mild chronic compression deformities noted at T11.. IMPRESSION: No CT evidence of pulmonary embolism. Diffuse bilateral infiltrates. <Electronically signed by Pedro Velasquez > 06/01/21 [id number]
--- NOTE | 2021-06-01 13:30 | CR.PDOC ---
General Date of Consultation: Jun 01, 2021 Consultation REASON FOR CRITICAL CARE CONSULTATION/CHIEF COMPLAINT: Shortness of breath HISTORY OF PRESENT ILLNESS: 48-year-old female who has no prior medical history and is a never smoker who presented to the hospital with 1 week of cough and shortness of breath and was found to have Covid pneumonia. She was hypoxic on presentation and she was admitted for acute hypoxic respiratory failure. She has been in the [facility] Covid unit and she was having progressively increasing oxygen requirements over the past day. She says that she did not get vaccinated. She says that she feels a little bit worse than yesterday and she is still having shortness of breath and dry cough. Today she was requiring Vapotherm 40 and 100 and she was still having desaturation episodes to the high 80s. Patient is seen and examined. She is currently on high flow nasal cannula 40 and 100 and satting 88%. She is placed on the nonrebreather and her sats coming up into the mid 90s. She is a mouth breather. 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 HOME MEDICATIONS: Please see below. REVIEW OF SYSTEMS: CONSTITUTIONAL: Denies fever, chills, night sweats, weight loss EYES: No blurring of vision or redness. ENT: No sore throat. No epistaxis. No tinnitus. CARDIOVASCULAR: No chest pain. No palpitations. RESPIRATORY: No dyspnea, no wheeze, no cough, no hemoptysis GASTROINTESTINAL: No nausea, vomiting, or diarrhea. GENITOURINARY: No frequency, urgency, nocturia. No hematuria or dysuria. MUSCULOSKELETAL: No arthralgias or myalgias. INTEGUMENTARY: No rash or swelling NEUROLOGIC: No headache. No numbness or tingling of the extremities. No weakness. PSYCHIATRIC: No confusion or mood changes. ENDOCRINE: No fatigue, no goiter. HEMATOLOGICAL: No bleeding. No petechiae. No bruising. PHYSICAL EXAMINATION: VITAL SIGNS: Please see below. GENERAL APPEARANCE: Alert and awake. Morbidly obese HEENT: no thyromegaly, trachea midline, PERRLA. normal mucous membranes RESPIRATORY: Reduced breath sounds bilateral but good air entry CARDIOVASCULAR: +s1 s2, no murmurs. ABDOMEN: nontender, not distended, +BS EXTREMITIES: no edema or erythema. palpable distal pulses SKIN: no rash, no purpura NEUROLOGICAL: no sensory or motor deficits, orientedx3. LABS/IMAGING: CT chest as noted diffuse bilateral infiltrates. No evidence of PE IMPRESSION: The most critical problems requiring my immediate presence at bedside are: 1. Acute hypoxic respiratory failure secondary to Covid pneumonia/ARDS. 2. No evidence of bacterial coinfection. 3. Morbid obesity PLAN: * Patient does better with the nonrebreather mask as she is a mouth breather. Can alternate with the Vapotherm for eating and drinking. * Titrate down oxygen as tolerated and maintain SPO2 88 to 96%. * Recommend discontinuing antibiotics as patient is afebrile, normal white count and low procalcitonin * Continue with baricitinib 4 mg p.o. daily x14 days. * Continue with Decadron 6 mg IV daily x10 days * DVT prophylaxis * Avoid volume overload. Lasix as needed to maintain equal fluid balance * Awake proning as tolerated, incentive spirometry, albuterol as needed A total of 41 minutes of critical care time was spent on patient care, not including procedures Vital Signs/I&O Vital Signs Date Time Temp Pulse Resp B/P (MAP) Pulse Ox O2 Delivery O2 Flow Rate FiO2 06/01/21 12:00 89 HVNI-Vapotherm 40.0 100 06/01/21 11:59 98.3 67 21 118/56 (76) I&O- Last 24 Hours up to 6 AM 06/01/21 06:00 Intake Total 2180 ml Output Total 600 ml Balance 1580 ml Laboratory Data Labs 24H Laboratory Tests 2 06/01/21 05:00: Blood Gas Bicarbonate Standard 25.2, Arterial Blood pH 7.424, Arterial Blood Partial Pressure CO2 39.8, Arterial Blood Partial Pressure O2 56.7L, Arterial Blood Total CO2 26.7, Arterial Blood HCO3 25.5, Arterial Blood Base Excess 1.1, Arterial Blood Oxygen Saturation 89.4L 06/01/21 06:21: Immature Granulocyte % (Auto) 0.7, Neutrophils (%) (Auto) 70.8H, Lymphocytes (%) (Auto) 22.1L, Monocytes (%) (Auto) 6.3, Eosinophils (%) (Auto) 0.0, Basophils (%) (Auto) 0.1, Neutrophils # (Auto) 6.2, Lymphocytes # (Auto) 1.9, Monocytes # (Auto) 0.6, Eosinophils # (Auto) 0.0, Basophils # (Auto) 0.0, Nucleated Red Blood Cells % (auto) 0.0, Anion Gap 5L, Glomerular Filtration Rate > 60.0, Calcium Level 8.8, Magnesium Level 2.3, Total Bilirubin 0.3, Direct Bilirubin 0.1, Aspartate Amino Transf (AST/SGOT) 44H, Alanine Aminotransferase (ALT/SGPT) 37, Alkaline Phosphatase 82, JX-Cgb-V-Type Natriuretic Peptide 358H, Total Protein 6.6, Albumin 2.7L, Albumin/Globulin Ratio 0.7L, Procalcitonin <0.05 CBC/BMP Laboratory Tests 06/01/21 06:21 Microbiology Microbiology 05/30/21 Respiratory Virus Panel (PCR) ([facility]) - Final, Complete SARS-CoV-2 (COVID 19) 05/30/21 Blood Culture - Preliminary, Resulted No growth after 24 hours . All specim... 05/30/21 Blood Culture - Preliminary, Resulted No growth after 24 hours . All specim... Allergies Coded Allergies: No Known Allergies (Unverified , 05/30/21) Home Medications Scheduled PRN Guaifenesin/Dextromethorphan (Mucinex Fast-Max Dm Max Liquid) 180 Ml Liquid, 20 ML PO Q4H PRN for CONGESTION/COUGH, (Reported) CHANTELL MELENDEZ MD Jun 01, 2021 13:29
--- NOTE | 2021-06-01 14:50 | IPNPDOC ---
Date Seen The patient was seen on 06/01/21. Progress Note SUBJECTIVE: Continued pleuritic pain with coughing, increased O2 demand overnight, incr work of breathing. Currently on flow rate of 30, FiO2 100 saturating at times 87% Consulted pulmonary to evaluate. She denies chest pain fevers, chills, nausea, vomiting, abdominal pain. OBJECTIVE: PHYSICAL EXAMINATION: Constitutional: Awake and alert x 3, appears uncomfortable with movement ENT: Sclera are clear. Mucosa is moist. Respiratory: No respiratory distress, Lungs diminished breath sounds bi laterally, mild rhonchi bilaterally. No wheezing Cardiovascular: RRR S1 and S2 are normal, no m/r/g Gastrointestinal: Obese, Abdomen is soft, non distended, non tender, BS present. Musculoskeletal: No lower extremity edema. Neurologic: No focal neurological deficit. Mental Status: A&O x3, normal affect Skin: No visible rashes LABORATORY DATA: See below. IMAGING: CTA chest: No CT evidence of pulmonary embolism. Diffuse bilateral infiltrates. MICROBIOLOGY: Please see below. ASSESSMENT: 56-year-old female presents with shortness of breath found to have Covid 19 infection requiring supplemental oxygen admitted for further medical management. PLAN: Acute hypoxic respiratory failure 2/2 Covid 19 infection -Worsened over the evening, currently on HFNC flow rate 30-40, FiO2 100%- using NRB in addition at times -CT chest showed b/l infiltrates, no PE -Procalcitonin still low, BNP low as well -C/w IV Decadron, Remdesivir, inhalers ATC and PRN, IS. Added baricitinib today -C/w labs per COVID protocol, precautions -F/u pulmonary recommendations Acute hypokalemia -Replace PRN Acute thrombocytopenia likely 2/2 to infection above-improved -No s/s of bleeding -F/u CBC daily DVT prophylaxis: Lovenox DISPOSITION: Inpatient admission. PT/OT when respiratory status more stable. Plan is discharge home when medically improved. VS, I&O, 24H, Fishbone Vital Signs/I&O Vital Signs Date Time Temp Pulse Resp B/P (MAP) Pulse Ox O2 Delivery O2 Flow Rate FiO2 06/01/21 14:12 92 Venturi Mask 15.0 06/01/21 12:00 100 06/01/21 11:59 98.3 67 21 118/56 (76) I&O- Last 24 Hours up to 6 AM 06/01/21 06:00 Intake Total 2180 ml Output Total 600 ml Balance 1580 ml Laboratory Data 24H LABS Laboratory Tests 2 06/01/21 05:00: Blood Gas Bicarbonate Standard 25.2, Arterial Blood pH 7.424, Arterial Blood Partial Pressure CO2 39.8, Arterial Blood Partial Pressure O2 56.7L, Arterial Blood Total CO2 26.7, Arterial Blood HCO3 25.5, Arterial Blood Base Excess 1.1, Arterial Blood Oxygen Saturation 89.4L 06/01/21 06:21: Immature Granulocyte % (Auto) 0.7, Neutrophils (%) (Auto) 70.8H, Lymphocytes (%) (Auto) 22.1L, Monocytes (%) (Auto) 6.3, Eosinophils (%) (Auto) 0.0, Basophils (%) (Auto) 0.1, Neutrophils # (Auto) 6.2, Lymphocytes # (Auto) 1.9, Monocytes # (Auto) 0.6, Eosinophils # (Auto) 0.0, Basophils # (Auto) 0.0, Nucleated Red Blood Cells % (auto) 0.0, Anion Gap 5L, Glomerular Filtration Rate > 60.0, Calcium Level 8.8, Magnesium Level 2.3, Total Bilirubin 0.3, Direct Bilirubin 0.1, Aspartate Amino Transf (AST/SGOT) 44H, Alanine Aminotransferase (ALT/SGPT) 37, Alkaline Phosphatase 82, ZJ-Kpe-M-Type Natriuretic Peptide 358H, Total Protein 6.6, Albumin 2.7L, Albumin/Globulin Ratio 0.7L, Procalcitonin <0.05 CBC/BMP Laboratory Tests 06/01/21 06:21 Microbiology Microbiology 05/30/21 Respiratory Virus Panel (PCR) ([facility]) - Final, Complete SARS-CoV-2 (COVID 19) 05/30/21 Blood Culture - Preliminary, Resulted No growth after 24 hours . All specim... 05/30/21 Blood Culture - Preliminary, Resulted No growth after 24 hours . All specim... Ree Crockett MD Jun 01, 2021 14:50
[2021-06-01 16:10] LABS: MYCOPLASMA PNEUMONIAE IgG 263 U/mL (0-99); MYCOPLASMA PNEUMONIAE IgM <770 U/mL (0-769)
[2021-06-01] MEDS: BENZONATATE 100MG CAPSULE PO PRN (21:58)
[2021-06-01] MEDS: ACETAMINOPHEN TAB 650MG DOSE (2X325MG) PO PRN (22:01)
[2021-06-02] VITALS (13 sets, daily range): BP systolic 113–145; BP diastolic 56–76; O2SAT 94–95
[2021-06-02] MEDS: guaiFENesin/CODEINE SYRUP 5 ML UDC PO SCH ×5 (00:29→23:54)
[2021-06-02] MEDS: IBUPROFEN 600MG TAB PO SCH ×5 (00:35→23:57)
[2021-06-02] MEDS: IPRATROPIUM 0.5MG/ALBUTEROL 2.5MG INH SOL UD 3ML (DUONEB) NEB SCH ×4 (01:48→20:08)
[2021-06-02] MEDS: REMDESIVIR 100 MG in NS 250 ML IV SCH (01:51)
[2021-06-02] MEDS: SODIUM CHLORIDE 0.9% INJ 10 ML SYR IV SCH (01:52)
[2021-06-02 07:47] LABS: BASO % 0.2 % (0.0-1.0); EOS % 2.5 % (0.0-3.0); HEMATOCRIT 43.6 % (36.0-47.0); HEMOGLOBIN 12.9 g/dl (12.0-15.5); LYMPH % 24.3 % (24.0-44.0); MEAN CORPUSCULAR HEMOGLOBIN 18.8 pg (27.0-33.0); MEAN CORPUSCULAR HGB CONC 29.6 g/dl (32.0-36.5); MEAN CORPUSCULAR VOLUME 63.4 fl (80.0-96.0); NEUTROPHILS % 61.5 % (36.0-66.0); PLATELET COUNT, AUTOMATED 264 10^3/uL (150-450); RED BLOOD COUNT 6.88 10^6/uL (4.00-5.40); WHITE BLOOD COUNT 8.2 10^3/uL (4.0-10.0)
[2021-06-02 07:48] LABS: EOS # 0.2 10^3/uL (0.0-0.5); MONO # 0.9 10^3/uL (0.0-0.8)
[2021-06-02 08:15] LABS: ABG BASE EXCESS 1.7 (-2.0-2.0); ABG HCO3 26.2 MEQ/L (22.0-26.0); ABG O2 SATURATION 91.9 % (95.0-99.0); ABG PARTIAL PRESSURE CO2 40.4 mmHg (35.0-45.0); ABG PARTIAL PRESSURE O2 61.6 mmHg (75.0-100.0); ABG STANDARD HCO3 25.9 MEQ/L (22.0-26.0); ABG TOTAL CO2 27.4 MEQ/L (22.0-29.0); ABG pH (ARTERIAL) 7.429 UNITS (7.350-7.450)
[2021-06-02 08:19] LABS: PROTHROMBIN TIME 13.6 SECONDS (12.7-14.5)
[2021-06-02 08:20] LABS: PARTIAL THROMBOPLASTIN TIME 35.2 SECONDS (25.9-37.0)
[2021-06-02] MEDS: dexameTHASONE 4 MG/ML 1ML VIAL (J1100 PER 1MG) IV SCH (08:26)
[2021-06-02] MEDS: ENOXAPARIN 40MG/0.4ML SYRINGE (J1650 PER 10MG) SC SCH (08:27)
[2021-06-02] MEDS: BARICITINIB 2MG TABLET (OLUMIANT) FOR EUA PO SCH (08:27)
[2021-06-02 08:28] LABS: ALBUMIN 2.7 GM/DL (3.2-5.2); ALT/SGPT 42 U/L (12-78); BILIRUBIN,DIRECT 0.1 MG/DL (0.0-0.2); BILIRUBIN,TOTAL 0.4 MG/DL (0.2-1.0); BLOOD UREA NITROGEN 18 MG/DL (7-18); CALCIUM LEVEL 8.6 MG/DL (8.5-10.1); CARBON DIOXIDE LEVEL 28 MEQ/L (21-32); CHLORIDE LEVEL 113 MEQ/L (98-107); CPK CREATINE PHOSPHOKINASE 355 U/L (26-192); CREATININE FOR GFR 0.37 MG/DL (0.55-1.30); FERRITIN 1168 NG/ML (8-252); GLOMERULAR FILTRATION RATE > 60.0 (>51); GLUCOSE, FASTING 97 MG/DL (70-100); LDH LACTATE DEHYDROGENASE 424 U/L (84-246); MAGNESIUM LEVEL 2.5 MG/DL (1.8-2.4); NT-PRO BNP 274 PG/ML (<125); POTASSIUM SERUM 3.3 MEQ/L (3.5-5.1); SODIUM LEVEL 145 MEQ/L (136-145); TOTAL PROTEIN 6.7 GM/DL (6.4-8.2)
[2021-06-02] MEDS ORDERED: POTASSIUM CHLORIDE 10MEQ SR TABLET PO ONE (09:00)
--- NOTE | 2021-06-02 14:01 | IPNPDOC ---
Date Seen The patient was seen on 06/02/21. Progress Note SUBJECTIVE: The patient remain on 15 L nonrebreather overnight- she was changed from high flow nasal cannula to this as her oxygen saturations were better 06/01/2021. This AM her O2 dropped into the 50s with respiratory bedside. She was trialed again on high flow nasal cannula and the patient was desaturating into the low 80s. Decision was made to move to the COVID ICU and trial CPAP. The patient admits to increased work of breathing and shortness of breath, chest pain with coughing which is only slightly improved. She denies fevers, chills. OBJECTIVE: PHYSICAL EXAMINATION: Constitutional: Awake and alert x 3, appears uncomfortable ENT: Sclera are clear. Mucosa is moist. Respiratory: mild distress, lungs diminished breath sounds bilaterally, mild rhonchi bilaterally. No wheezing Cardiovascular: RRR , S1 and S2 are normal, no m/r/g Gastrointestinal: Obese, Abdomen is soft, non distended, non tender, BS present. Musculoskeletal: No lower extremity edema. Neurologic: No focal neurological deficit. Mental Status: A&O x3, normal affect Skin: No visible rashes LABORATORY DATA: See below. IMAGING: CTA chest 06/01/21: No CT evidence of pulmonary embolism. Diffuse bilateral infiltrates. MICROBIOLOGY: Please see below. ASSESSMENT: 56-year-old female presents with shortness of breath found to have Covid 19 infection requiring supplemental oxygen admitted for further medical management. PLAN: Acute hypoxic respiratory failure 2/2 Covid 19 infection -Worsened over the AM, hypoxic on HFNC with NRB. Starting on CPAP -CT chest above from 06/01/21, ruled out PE -Procalcitonin and BNP still low -C/w IV Decadron, Remdesivir, baricitinib, inhalers ATC and PRN, IS. -C/w labs per COVID protocol, precautions -F/u pulmonary recommendations -Moving to COVID ICU Acute hypokalemia -Replace PRN DVT prophylaxis: Lovenox DISPOSITION: Transferring to ICU due to worsening respiratory status. PT/OT when respiratory status more stable. Plan is hopefully discharge home when medically improved. TOTAL TIME SPENT CARING FOR THIS ICU PATIENT: 50 mins VS, I&O, 24H, Fishbone Vital Signs/I&O Vital Signs Date Time Temp Pulse Resp B/P (MAP) Pulse Ox O2 Delivery O2 Flow Rate FiO2 06/02/21 08:00 94 Non-Rebreather 15.0 06/02/21 08:00 97.8 59 22 121/56 (77) 06/01/21 20:00 50 I&O- Last 24 Hours up to 6 AM 06/02/21 06:00 Intake Total 880 ml Output Total 1475 ml Balance -595 ml Laboratory Data 24H LABS Laboratory Tests 2 06/02/21 07:28: Immature Granulocyte % (Auto) 0.5, Neutrophils (%) (Auto) 61.5, Lymphocytes (%) (Auto) 24.3, Monocytes (%) (Auto) 11.0H, Eosinophils (%) (Auto) 2.5, Basophils (%) (Auto) 0.2, Neutrophils # (Auto) 5.0, Lymphocytes # (Auto) 2.0, Monocytes # (Auto) 0.9H, Eosinophils # (Auto) 0.2, Basophils # (Auto) 0.0, Nucleated Red Blood Cells % (auto) 0.0, Prothrombin Time 13.6, Prothromb Time International Ratio 1.00, Activated Partial Thromboplast Time 35.2, Fibrinogen 467H, Anion Gap 4L, Glomerular Filtration Rate > 60.0, Calcium Level 8.6, Magnesium Level 2.5H, Ferritin 1168H, Total Bilirubin 0.4, Direct Bilirubin 0.1, Aspartate Amino Transf (AST/SGOT) 52H, Alanine Aminotransferase (ALT/SGPT) 42, Alkaline Phosphatase 83, Lactate Dehydrogenase 424H, Total Creatine Kinase 355H, LP-Ckr-A-Type Natriuretic Peptide 274H, Total Protein 6.7, Albumin 2.7L, Albumin/Globulin Ratio 0.7L, Procalcitonin <0.05 06/02/21 07:41: Blood Gas Bicarbonate Standard 25.9, Arterial Blood pH 7.429, Arterial Blood Partial Pressure CO2 40.4, Arterial Blood Partial Pressure O2 61.6L, Arterial Blood Total CO2 27.4, Arterial Blood HCO3 26.2H, Arterial Blood Base Excess 1.7, Arterial Blood Oxygen Saturation 91.9L CBC/BMP Laboratory Tests 06/02/21 07:28 Microbiology Microbiology 05/30/21 Respiratory Virus Panel (PCR) ([facility]) - Final, Complete SARS-CoV-2 (COVID 19) 05/30/21 Blood Culture - Preliminary, Resulted No Growth after 48 hours. All Specime... 05/30/21 Blood Culture - Preliminary, Resulted No Growth after 48 hours. All Specime... Ree Crockett MD Jun 02, 2021 14:01
--- NOTE | 2021-06-02 15:37 | IPNPDOC ---
Subjective Date Seen The patient was seen on 06/02/21. Subjective Chief Complaint/HPI I was called back to reevaluate patient as patient is increasing oxygen requirement. Patient was on Vapotherm max setting with 100% nonrebreather on top. She is complaining of extreme fatigue and shortness of breath. Otherwise she denies of fever, chills, chest pain, abdominal pain, diarrhea. Constitutional: Reports: Fatigue (Extreme); Denies: Chills, Fever Eyes: Denies: Pain ENT: Denies: Head Aches Skin: Denies: Rash Pulmonary: Reports: Dyspnea; Denies: Cough Cardiovascular: Denies: Chest Pain, Palpitations, Orthopnea, Paroxysmal Noc. Dyspnea, Edema Gastrointestinal: Denies: Nausea, Vomiting, Abdominal Pain Neurological: Denies: Weakness, Numbness Objective Physical Examination General Exam: Positive: Alert, Cooperative, Mild Distress, Other (Chronically ill-appearing) Eye Exam: Positive: PERRLA ENT Exam: Positive: Atraumatic, Mucous membr. moist/pink Neck Exam: Positive: Supple; Negative: JVD, Lymphadenopathy Chest Exam: Positive: Rhonchi (Bilateral) Heart Exam: Positive: Rate Normal, Regular Rhythm; Negative: Murmurs Telemetry: Negative: No significant arrhythmia Abdomen Exam: Positive: Normal bowel sounds, Soft; Negative: Tenderness, Hepatospenomegaly Extremity Exam: Negative: Clubbing, Edema, Swelling Neuro Exam: Positive: Normal Speech Psych Exam: Positive: Mental status NL, Oriented x 3 Assessment /Plan Assessment This is a 56-year-old female with no significant past medical history admitted to the ICU with COVID-19 ARDS. 1. COVID-19 ARDS 2. Morbid obesity Plan/VTE VTE Prophylaxis Ordered?: Yes Plan -Patient was currently transfer from stepdown to ICU for further close monitoring. She was on Vapotherm max setting with 100% nonrebreather on top. However, she was not able to tolerate Vapotherm as she could not tolerate anything in her nares. She is also claustrophobic and could not tolerate CPAP. Therefore, she is currently on Vapotherm max setting with regular oxygen facemask. She is low threshold for endotracheal intubation. -Continue with remdesivir, baricitinib, Decadron. -Encourage self proning. Disposition Continue ICU care VS, I&O, 24H, Fishbone Vital Signs/I&O Vital Signs Date Time Temp Pulse Resp B/P (MAP) Pulse Ox O2 Delivery O2 Flow Rate FiO2 06/02/21 14:00 61 37 121/76 (91) 94 HVNI-Vapotherm 40.0 100 06/02/21 13:00 97.0 I&O- Last 24 Hours up to 6 AM 06/02/21 06:00 Intake Total 880 ml Output Total 1475 ml Balance -595 ml Laboratory Data 24H LABS Laboratory Tests 2 06/02/21 07:28: Immature Granulocyte % (Auto) 0.5, Neutrophils (%) (Auto) 61.5, Lymphocytes (%) (Auto) 24.3, Monocytes (%) (Auto) 11.0H, Eosinophils (%) (Auto) 2.5, Basophils (%) (Auto) 0.2, Neutrophils # (Auto) 5.0, Lymphocytes # (Auto) 2.0, Monocytes # (Auto) 0.9H, Eosinophils # (Auto) 0.2, Basophils # (Auto) 0.0, Nucleated Red Blood Cells % (auto) 0.0, Prothrombin Time 13.6, Prothromb Time International Ratio 1.00, Activated Partial Thromboplast Time 35.2, Fibrinogen 467H, Anion Gap 4L, Glomerular Filtration Rate > 60.0, Calcium Level 8.6, Magnesium Level 2.5H, Ferritin 1168H, Total Bilirubin 0.4, Direct Bilirubin 0.1, Aspartate Amino Transf (AST/SGOT) 52H, Alanine Aminotransferase (ALT/SGPT) 42, Alkaline Phosphatase 83, Lactate Dehydrogenase 424H, Total Creatine Kinase 355H, DD-Eta-N-Type Natriuretic Peptide 274H, Total Protein 6.7, Albumin 2.7L, Albumin/Globulin Ratio 0.7L, Procalcitonin <0.05 06/02/21 07:41: Blood Gas Bicarbonate Standard 25.9, Arterial Blood pH 7.429, Arterial Blood Partial Pressure CO2 40.4, Arterial Blood Partial Pressure O2 61.6L, Arterial Blood Total CO2 27.4, Arterial Blood HCO3 26.2H, Arterial Blood Base Excess 1.7, Arterial Blood Oxygen Saturation 91.9L CBC/BMP Laboratory Tests 06/02/21 07:28 Microbiology Microbiology 05/30/21 Respiratory Virus Panel (PCR) ([facility]) - Final, Complete SARS-CoV-2 (COVID 19) 05/30/21 Blood Culture - Preliminary, Resulted No Growth after 48 hours. All Specime... 05/30/21 Blood Culture - Preliminary, Resulted No Growth after 48 hours. All Specime... MOHAMUD PACHECO MD Jun 02, 2021 15:37
[2021-06-02] MEDS: hydrOXYzine 25 MG TAB PO PRN ×2 (18:27→23:55)
[2021-06-02] MEDS: BENZONATATE 100MG CAPSULE PO PRN (21:28)
[2021-06-02] MEDS: ACETAMINOPHEN TAB 650MG DOSE (2X325MG) PO PRN (21:28)
[2021-06-03] VITALS (16 sets, daily range): BP systolic 100–142; BP diastolic 57–80; O2SAT 89–91
[2021-06-03] MEDS: IPRATROPIUM 0.5MG/ALBUTEROL 2.5MG INH SOL UD 3ML (DUONEB) NEB SCH ×2 (01:29→09:00)
[2021-06-03] MEDS: REMDESIVIR 100 MG in NS 250 ML IV SCH (02:09)
[2021-06-03] MEDS: SODIUM CHLORIDE 0.9% INJ 10 ML SYR IV SCH (03:21)
[2021-06-03 05:28] LABS: HEMATOCRIT 43.1 % (36.0-47.0); HEMOGLOBIN 12.7 g/dl (12.0-15.5); MEAN CORPUSCULAR HEMOGLOBIN 18.8 pg (27.0-33.0); MEAN CORPUSCULAR HGB CONC 29.5 g/dl (32.0-36.5); MEAN CORPUSCULAR VOLUME 63.9 fl (80.0-96.0); PLATELET COUNT, AUTOMATED 258 10^3/uL (150-450); RED BLOOD COUNT 6.74 10^6/uL (4.00-5.40); WHITE BLOOD COUNT 6.7 10^3/uL (4.0-10.0)
[2021-06-03 05:50] LABS: BLOOD UREA NITROGEN 18 MG/DL (7-18); CALCIUM LEVEL 8.2 MG/DL (8.5-10.1); CARBON DIOXIDE LEVEL 29 MEQ/L (21-32); CHLORIDE LEVEL 112 MEQ/L (98-107); GLOMERULAR FILTRATION RATE > 60.0 (>51); GLUCOSE, FASTING 79 MG/DL (70-100); POTASSIUM SERUM 3.8 MEQ/L (3.5-5.1); SODIUM LEVEL 146 MEQ/L (136-145)
[2021-06-03 05:51] LABS: ALBUMIN 2.7 GM/DL (3.2-5.2); ALT/SGPT 45 U/L (12-78); BILIRUBIN,TOTAL 0.4 MG/DL (0.2-1.0)
[2021-06-03] MEDS: guaiFENesin/CODEINE SYRUP 5 ML UDC PO SCH ×3 (06:08→18:34)
[2021-06-03] MEDS: IBUPROFEN 600MG TAB PO SCH ×3 (06:09→18:34)
[2021-06-03] MEDS: ENOXAPARIN 40MG/0.4ML SYRINGE (J1650 PER 10MG) SC SCH (08:12)
[2021-06-03] MEDS: BARICITINIB 2MG TABLET (OLUMIANT) FOR EUA PO SCH (08:12)
[2021-06-03] MEDS: dexameTHASONE 4 MG/ML 1ML VIAL (J1100 PER 1MG) IV SCH (08:12)
[2021-06-03] MEDS ORDERED: COMBIVENT RESPIMAT 100-20MCG INHALER 4GM INH PRN (11:25)
--- NOTE | 2021-06-03 13:08 | IPNPDOC ---
Date Seen The patient was seen on 06/03/21. Progress Note SUBJECTIVE: Saturating well on 15 L nonrebreather. No need for CPAP overnight. Encouraging awake planning. She denies increased shortness of breath at rest, fevers, chills, nausea, vomiting. OBJECTIVE: PHYSICAL EXAMINATION: Constitutional: Awake and alert x 3, resting in bed ENT: Sclera are clear. Mucosa is moist. Respiratory: lungs diminished breath sounds bilaterally, mild rhonchi bilat erally. No wheezing Cardiovascular: RRR , S1 and S2 are normal, no m/r/g Gastrointestinal: Obese, Abdomen is soft, non distended, non tender, BS present. Musculoskeletal: No lower extremity edema. Neurologic: No focal neurological deficit. Mental Status: A&O x3, normal affect Skin: No visible rashes LABORATORY DATA: See below. IMAGING: CTA chest 06/01/21: No CT evidence of pulmonary embolism. Diffuse bilateral infiltrates. MICROBIOLOGY: Please see below. ASSESSMENT: 56-year-old female presents with shortness of breath found to have Covid 19 infection requiring supplemental oxygen admitted for further medical management. PLAN: Acute hypoxic respiratory failure 2/2 Covid 19 infection -Saturating well on 15 L nonrebreather. The patient does not tolerate high flow well and is not O's compliant with it -CT chest above from 06/01/21, ruled out PE -Procalcitonin and BNP still low -C/w IV Decadron, Remdesivir, baricitinib, inhalers ATC and PRN, IS. -C/w labs per COVID protocol, precautions -F/u pulmonary recommendations Deconditioning secondary to acute illness -PT/OT when respiratory status more stable DVT prophylaxis: Lovenox DISPOSITION: Currently in Covid ICU; however, if does well and remained stable can transfer out later today. TOTAL TIME SPENT CARING FOR THIS ICU PATIENT: 30 mins VS, I&O, 24H, Fishbone Vital Signs/I&O Vital Signs Date Time Temp Pulse Resp B/P (MAP) Pulse Ox O2 Delivery O2 Flow Rate FiO2 06/03/21 12:00 15.0 06/03/21 12:00 97.8 50 30 121/57 (78) 93 Non-Rebreather 06/03/21 09:00 100 I&O- Last 24 Hours up to 6 AM 06/03/21 06:00 Intake Total 990 ml Output Total 315 ml Balance 675 ml Laboratory Data 24H LABS Laboratory Tests 2 06/03/21 04:16: Nucleated Red Blood Cells % (auto) 0.0, Anion Gap 5L, Glomerular Filtration Rate > 60.0, Calcium Level 8.2L, Total Bilirubin 0.4, Aspartate Amino Transf (AST/SGOT) 52H, Alanine Aminotransferase (ALT/SGPT) 45, Alkaline Phosphatase 86, Total Protein 6.0L, Albumin 2.7L, Albumin/Globulin Ratio 0.8L CBC/BMP Laboratory Tests 06/03/21 04:16 Microbiology Microbiology 05/30/21 Respiratory Virus Panel (PCR) ([facility]) - Final, Complete SARS-CoV-2 (COVID 19) 05/30/21 Blood Culture - Preliminary, Resulted No Growth after 72 hours. All specime... 05/30/21 Blood Culture - Preliminary, Resulted No Growth after 72 hours. All specime... Ree Crockett MD Jun 03, 2021 13:08
[2021-06-03] MEDS: COMBIVENT RESPIMAT 100-20MCG INHALER 4GM INH SCH ×2 (14:16→20:27)
--- NOTE | 2021-06-03 18:30 | IPNPDOC ---
Subjective Date Seen The patient was seen on 06/03/21. Subjective Chief Complaint/HPI Patient is currently doing well on Vapotherm and nonrebreather. She admits to experiencing shortness of breath and extreme fatigue. However she denies of fever, chills, cough, chest pain, palpitation. Constitutional: Denies: Chills, Fever ENT: Denies: Head Aches Skin: Denies: Rash Pulmonary: Reports: Dyspnea; Denies: Cough Cardiovascular: Denies: Chest Pain, Palpitations, Orthopnea Gastrointestinal: Denies: Nausea, Vomiting, Abdominal Pain Neurological: Denies: Weakness Psych: Reports: Mood Normal Objective Physical Examination General Exam: Positive: Alert, Cooperative, Mild Distress, Other (Chronically ill-appearing) Eye Exam: Positive: PERRLA ENT Exam: Positive: Atraumatic, Mucous membr. moist/pink Neck Exam: Positive: Supple; Negative: JVD, Lymphadenopathy Chest Exam: Positive: Rhonchi (Bilateral) Heart Exam: Positive: Rate Normal, Regular Rhythm; Negative: Murmurs Telemetry: Negative: No significant arrhythmia Abdomen Exam: Positive: Normal bowel sounds, Soft; Negative: Tenderness, Hepatospenomegaly Extremity Exam: Negative: Clubbing, Edema, Swelling Neuro Exam: Positive: Normal Speech Psych Exam: Positive: Mental status NL, Oriented x 3 Assessment /Plan Assessment This is a 56-year-old female with no significant past medical history admitted to the ICU with COVID-19 ARDS. 1. COVID-19 ARDS 2. Morbid obesity Plan/VTE VTE Prophylaxis Ordered?: Yes Plan -She is currently on Vapotherm and 100% nonrebreather on top. However she is unable to tolerate Vapotherm due to nasal irritation. She cannot tolerate CPAP as she is claustrophobic. Therefore, we will continue with 100% nonrebreather to target oxygen saturation above 90%. -Continue with remdesivir, baricitinib, Decadron. Encourage self proning. No evidence of superimposed bacterial pneumonia. Therefore, we can hold off empiric antibiotic therapy. Disposition Can potentially transfer out of ICU later today. VS, I&O, 24H, Fishbone Vital Signs/I&O Vital Signs Date Time Temp Pulse Resp B/P (MAP) Pulse Ox O2 Delivery O2 Flow Rate FiO2 06/03/21 17:05 53 139/65 (89) 89 Non-Rebreather 15.0 06/03/21 15:00 98.0 32 06/03/21 09:00 100 I&O- Last 24 Hours up to 6 AM 06/03/21 06:00 Intake Total 990 ml Output Total 315 ml Balance 675 ml Laboratory Data 24H LABS Laboratory Tests 2 06/03/21 04:16: Nucleated Red Blood Cells % (auto) 0.0, Anion Gap 5L, Glomerular Filtration Rate > 60.0, Calcium Level 8.2L, Total Bilirubin 0.4, Aspartate Amino Transf (AST/SGOT) 52H, Alanine Aminotransferase (ALT/SGPT) 45, Alkaline Phosphatase 86, Total Protein 6.0L, Albumin 2.7L, Albumin/Globulin Ratio 0.8L CBC/BMP Laboratory Tests 06/03/21 04:16 Microbiology Microbiology 05/30/21 Respiratory Virus Panel (PCR) ([facility]) - Final, Complete SARS-CoV-2 (COVID 19) 05/30/21 Blood Culture - Preliminary, Resulted No Growth after 72 hours. All specime... 05/30/21 Blood Culture - Preliminary, Resulted No Growth after 72 hours. All specime... MOHAMUD PACHECO MD Jun 03, 2021 18:30
[2021-06-04] VITALS (8 sets, daily range): BP systolic 119–138; BP diastolic 59–78; O2SAT 88–90
[2021-06-04] MEDS: IBUPROFEN 600MG TAB PO SCH ×4 (00:40→18:37)
[2021-06-04] MEDS: guaiFENesin/CODEINE SYRUP 5 ML UDC PO SCH ×4 (00:40→18:37)
[2021-06-04] MEDS: REMDESIVIR 100 MG in NS 250 ML IV SCH (01:02)
[2021-06-04] MEDS: COMBIVENT RESPIMAT 100-20MCG INHALER 4GM INH SCH ×4 (01:11→19:49)
[2021-06-04] MEDS: SODIUM CHLORIDE 0.9% INJ 10 ML SYR IV SCH (02:23)
[2021-06-04 05:02] LABS: HEMATOCRIT 42.8 % (36.0-47.0); HEMOGLOBIN 12.9 g/dl (12.0-15.5); MEAN CORPUSCULAR HEMOGLOBIN 19.1 pg (27.0-33.0); MEAN CORPUSCULAR HGB CONC 30.1 g/dl (32.0-36.5); MEAN CORPUSCULAR VOLUME 63.2 fl (80.0-96.0); PLATELET COUNT, AUTOMATED 311 10^3/uL (150-450); RED BLOOD COUNT 6.77 10^6/uL (4.00-5.40); WHITE BLOOD COUNT 8.8 10^3/uL (4.0-10.0)
[2021-06-04 05:25] LABS: INR 1.04
[2021-06-04 05:31] LABS: ALBUMIN 2.8 GM/DL (3.2-5.2); ALT/SGPT 43 U/L (12-78); BILIRUBIN,DIRECT 0.2 MG/DL (0.0-0.2); BILIRUBIN,TOTAL 0.5 MG/DL (0.2-1.0); BLOOD UREA NITROGEN 18 MG/DL (7-18); CALCIUM LEVEL 8.5 MG/DL (8.5-10.1); CARBON DIOXIDE LEVEL 28 MEQ/L (21-32); CHLORIDE LEVEL 112 MEQ/L (98-107); CPK CREATINE PHOSPHOKINASE 328 U/L (26-192); CREATININE FOR GFR 0.32 MG/DL (0.55-1.30); FERRITIN 888 NG/ML (8-252); GLOMERULAR FILTRATION RATE > 60.0 (>51); GLUCOSE, FASTING 89 MG/DL (70-100); LDH LACTATE DEHYDROGENASE 426 U/L (84-246); NT-PRO BNP 197 PG/ML (<125); SODIUM LEVEL 146 MEQ/L (136-145); TOTAL PROTEIN 6.3 GM/DL (6.4-8.2)
--- NOTE | 2021-06-04 07:44 | IPNPDOC ---
Date Seen The patient was seen on 06/04/21. Progress Note SUBJECTIVE: Worsening tachypnea, lower O2 on 15 L nonrebreather as the patient was unable to tolerate Vapotherm for several reasons. Previously could not tolerate CPAP due to claustrophobia. ABG shows hypoxia. She denies fevers, chills, nausea, vomiting. OBJECTIVE: PHYSICAL EXAMINATION: Constitutional: Awake and alert x 3, resting in bedside chair ENT: Sclera are clear. Mucosa is moist. Respiratory: lungs diminished breath sounds bilaterally, mild rhonchi bilaterally. No wheezing Cardiovascular: RRR , S1 and S2 are normal, no m/r/g Gastrointestinal: Obese, Abdomen is soft, non distended, non tender, BS present. Musculoskeletal: No lower extremity edema. Neurologic: No focal neurological deficit. Mental Status: A&O x3, normal affect Skin: No visible rashes LABORATORY DATA: See below. IMAGING: CXR 06/05/21: Extensive and worsening bilateral alveolar and interstitial infiltrates. CTA chest 06/01/21: No CT evidence of pulmonary embolism. Diffuse bilateral infiltrates. MICROBIOLOGY: Please see below. ASSESSMENT: 56-year-old female presents with shortness of breath found to have Covid 19 infection requiring supplemental oxygen admitted for further medical management. PLAN: Acute hypoxic respiratory failure 2/2 Covid 19 infection -Increasing tachypnea 30-37, remains on 15 L nonrebreather. The patient does not tolerate high flow well, has not been compliant with it past -CXR from 06/04/21: Extensive and worsening bilateral alveolar and interstitial infiltrates. -Patient admits to not awake proning because it makes her feel like she is "suffocating". Still encouraging as I think this will help -CT chest above from 06/01/21, ruled out PE -Procalcitonin and BNP low -ABG: pH wnl, PaO2 60's -C/w IV Decadron, Remdesivir, baricitinib, inhalers ATC and PRN, IS Q2H . -C/w labs per COVID protocol, precautions -F/u pulmonary recommendations Bradycardia, sinus -Asymptomatic, not on meds -Monitor on tele Deconditioning secondary to acute illness -PT/OT when respiratory status more stable DVT prophylaxis: Lovenox DISPOSITION: Low threshold for worsening so will keep in COVID ICU for now, pulmonary consulted. TOTAL TIME SPENT CARING FOR THIS ICU PATIENT: 40 mins VS, I&O, 24H, Fishbone Vital Signs/I&O Vital Signs Date Time Temp Pulse Resp B/P (MAP) Pulse Ox O2 Delivery O2 Flow Rate FiO2 06/04/21 07:34 90 Non-Rebreather 15.0 06/04/21 04:00 97.3 43 32 06/04/21 04:00 100 06/04/21 00:00 119/78 (92) I&O- Last 24 Hours up to 6 AM 06/04/21 06:00 Intake Total 1040 ml Output Total 1250 ml Balance -210 ml Laboratory Data 24H LABS Laboratory Tests 2 06/04/21 04:48: Prothrombin Time 14.0, Prothromb Time International Ratio 1.04, Activated Partial Thromboplast Time 31.0, Fibrinogen 447, Anion Gap 6L, Glomerular Filtration Rate > 60.0, Calcium Level 8.5, Ferritin 888H, Total Bilirubin 0.5, Direct Bilirubin 0.2, Aspartate Amino Transf (AST/SGOT) 40H, Alanine Ami notransferase (ALT/SGPT) 43, Alkaline Phosphatase 82, Lactate Dehydrogenase 426H, Total Creatine Kinase 328H, TX-Iur-Z-Type Natriuretic Peptide 197H, Total Protein 6.3L, Albumin 2.8L, Albumin/Globulin Ratio 0.8L 06/04/21 04:49: Nucleated Red Blood Cells % (auto) 0.0 CBC/BMP Laboratory Tests 06/04/21 04:48 06/04/21 04:49 Microbiology Microbiology 05/30/21 Respiratory Virus Panel (PCR) ([facility]) - Final, Complete SARS-CoV-2 (COVID 19) 05/30/21 Blood Culture - Preliminary, Resulted No Growth after 72 hours. All specime... 05/30/21 Blood Culture - Preliminary, Resulted No Growth after 72 hours. All specime... Ree Crockett MD Jun 04, 2021 07:44
[2021-06-04] MEDS: BARICITINIB 2MG TABLET (OLUMIANT) FOR EUA PO SCH (07:59)
[2021-06-04] MEDS: ENOXAPARIN 40MG/0.4ML SYRINGE (J1650 PER 10MG) SC SCH (08:02)
[2021-06-04] MEDS: dexameTHASONE 4 MG/ML 1ML VIAL (J1100 PER 1MG) IV SCH (08:03)
--- NOTE | 2021-06-04 08:29 | REP ---
INDICATION: worsening tachypnea. COMPARISON: CTA, AP CXR 06/01/2021. TECHNIQUE: AP portable seated chest, lordotic projection. FINDINGS: There is worsening of the bilateral OBL ower and interstitial infiltrates. There is elevation of the right diaphragm as before. CP angles are sharply defined but lordotic projection would obscure a significant portion of the posterior lower lung zones. There is left ventricular configuration of the heart. No other interval change. IMPRESSION: 1. Extensive and worsening bilateral alveolar and interstitial infiltrates. <Electronically signed by Jovany Fonseca > 06/04/21 [id number]
[2021-06-04 08:59] LABS: ABG BASE EXCESS 1.4 (-2.0-2.0); ABG HCO3 25.7 MEQ/L (22.0-26.0); ABG O2 SATURATION 92.5 % (95.0-99.0); ABG PARTIAL PRESSURE CO2 39.2 mmHg (35.0-45.0); ABG STANDARD HCO3 25.6 MEQ/L (22.0-26.0); ABG TOTAL CO2 26.9 MEQ/L (22.0-29.0); ABG pH (ARTERIAL) 7.434 UNITS (7.350-7.450)
[2021-06-04] MEDS: hydrOXYzine 25 MG TAB PO PRN (20:25)
[2021-06-04] MEDS: BENZONATATE 100MG CAPSULE PO PRN (20:25)
[2021-06-05] MEDS: guaiFENesin/CODEINE SYRUP 5 ML UDC PO SCH ×5 (00:06→23:48)
[2021-06-05] MEDS: IBUPROFEN 600MG TAB PO SCH ×5 (00:06→23:48)
[2021-06-05] MEDS: COMBIVENT RESPIMAT 100-20MCG INHALER 4GM INH SCH ×4 (01:29→20:15)
[2021-06-05 04:59] LABS: HEMOGLOBIN 12.4 g/dl (12.0-15.5); MEAN CORPUSCULAR HGB CONC 30.2 g/dl (32.0-36.5); PLATELET COUNT, AUTOMATED 339 10^3/uL (150-450); RED BLOOD COUNT 6.51 10^6/uL (4.00-5.40); WHITE BLOOD COUNT 9.1 10^3/uL (4.0-10.0)
[2021-06-05 05:32] LABS: ALBUMIN 2.8 GM/DL (3.2-5.2); ALT/SGPT 34 U/L (12-78); BILIRUBIN,TOTAL 0.5 MG/DL (0.2-1.0); BLOOD UREA NITROGEN 17 MG/DL (7-18); CALCIUM LEVEL 8.4 MG/DL (8.5-10.1); CARBON DIOXIDE LEVEL 27 MEQ/L (21-32); CHLORIDE LEVEL 112 MEQ/L (98-107); CREATININE FOR GFR 0.29 MG/DL (0.55-1.30); GLOMERULAR FILTRATION RATE > 60.0 (>51); GLUCOSE, FASTING 88 MG/DL (70-100); POTASSIUM SERUM 3.8 MEQ/L (3.5-5.1); SODIUM LEVEL 146 MEQ/L (136-145); TOTAL PROTEIN 6.1 GM/DL (6.4-8.2)
[2021-06-05 06:02] VITALS: BP 116/58
[2021-06-05 08:00] VITALS: BP 123/80
[2021-06-05] MEDS: dexameTHASONE 4 MG/ML 1ML VIAL (J1100 PER 1MG) IV SCH (08:27)
[2021-06-05] MEDS: ENOXAPARIN 40MG/0.4ML SYRINGE (J1650 PER 10MG) SC SCH (08:27)
[2021-06-05] MEDS: BENZONATATE 100MG CAPSULE PO PRN ×2 (08:27→20:24)
[2021-06-05] MEDS: BARICITINIB 2MG TABLET (OLUMIANT) FOR EUA PO SCH (09:14)
[2021-06-05 12:00] VITALS: BP 124/64
--- NOTE | 2021-06-05 15:53 | IPNPDOC ---
Date Seen The patient was seen on 06/05/21. Progress Note SUBJECTIVE: Placed back on vapotherm, 35 flow rate, 100% FiO2. Remains SOB with movement, attempting to awake prone more. She denies fevers, chills, nausea, vomiting. OBJECTIVE: PHYSICAL EXAMINATION: Constitutional: Awake and alert x 3, resting in bedside chair HEENT: Sclera are clear. Mucosa is moist. HFNC in place Respiratory: lungs diminished breath sounds bilaterally, mild rhonchi bi laterally, slightly improved aeration on exam. No wheezing Cardiovascular: RRR , S1 and S2 are normal, no m/r/g Gastrointestinal: Obese, Abdomen is soft, non distended, non tender, BS present. Musculoskeletal: No lower extremity edema. Neurologic: No focal neurological deficit. Mental Status: A&O x3, normal affect Skin: No visible rashes LABORATORY DATA: See below. IMAGING: CXR 06/04/21: Extensive and worsening bilateral alveolar and interstitial infiltrates. CTA chest 06/01/21: No CT evidence of pulmonary embolism. Diffuse bilateral infiltrates. MICROBIOLOGY: Please see below. ASSESSMENT: 56-year-old female presents with shortness of breath found to have Covid 19 infection requiring supplemental oxygen admitted for further medical management. PLAN: Acute hypoxic respiratory failure 2/2 Covid 19 infection -Tachypnea improved to low 20's from 30's on 06/04/21, on HFVapotherm, tolerating well. -CXR above -Patient trying to awake prone more than previously -CT chest above from 06/01/21, ruled out PE -Procalcitonin and BNP low -C/w IV Decadron, Remdesivir, baricitinib, inhalers ATC and PRN, IS Q2H . -C/w labs per COVID protocol, precautions -Pulmonary has seen Bradycardia, sinus -Asymptomatic, not on meds -Monitor on tele Deconditioning secondary to acute illness -PT/OT when respiratory status more stable DVT prophylaxis: Lovenox DISPOSITION: Low threshold for worsening so will keep in COVID ICU for now, pulmonary consulted. TOTAL TIME SPENT CARING FOR THIS ICU PATIENT: 30 mins VS, I&O, 24H, Fishbone Vital Signs/I&O Vital Signs Date Time Temp Pulse Resp B/P (MAP) Pulse Ox O2 Delivery O2 Flow Rate FiO2 06/05/21 12:00 35.0 90 06/05/21 12:00 97.3 61 22 124/64 (87) 92 HVNI-Vapotherm I&O- Last 24 Hours up to 6 AM 06/05/21 06:00 Intake Total 660 ml Output Total 700 ml Balance -40 ml Laboratory Data 24H LABS Laboratory Tests 2 06/05/21 04:47: Nucleated Red Blood Cells % (auto) 0.0, Anion Gap 7L, Glomerular Filtration Rate > 60.0, Calcium Level 8.4L, Total Bilirubin 0.5, Aspartate Amino Transf (AST/SGOT) 31, Alanine Aminotransferase (ALT/SGPT) 34, Alkaline Phosphatase 75, Total Protein 6.1L, Albumin 2.8L, Albumin/Globulin Ratio 0.8L CBC/BMP Laboratory Tests 06/05/21 04:47 Microbiology Microbiology 05/30/21 Respiratory Virus Panel (PCR) ([facility]) - Final, Complete SARS-CoV-2 (COVID 19) 05/30/21 Blood Culture - Final, Complete NO GROWTH AFTER 5 DAYS 05/30/21 Blood Culture - Final, Complete NO GROWTH AFTER 5 DAYS Ree Crockett MD Jun 05, 2021 15:53
[2021-06-05 16:01] VITALS: BP 124/64
[2021-06-05 20:01] VITALS: BP 106/59
[2021-06-05] MEDS: hydrOXYzine 25 MG TAB PO PRN (20:24)
[2021-06-05 22:00] VITALS: BP 117/60
[2021-06-06] MEDS: COMBIVENT RESPIMAT 100-20MCG INHALER 4GM INH SCH ×4 (01:12→19:33)
[2021-06-06 06:00] VITALS: BP 110/68
[2021-06-06 06:06] LABS: HEMATOCRIT 41.2 % (36.0-47.0); HEMOGLOBIN 12.3 g/dl (12.0-15.5); MEAN CORPUSCULAR HEMOGLOBIN 18.8 pg (27.0-33.0); MEAN CORPUSCULAR HGB CONC 29.9 g/dl (32.0-36.5); PLATELET COUNT, AUTOMATED 378 10^3/uL (150-450); RED BLOOD COUNT 6.54 10^6/uL (4.00-5.40); WHITE BLOOD COUNT 10.1 10^3/uL (4.0-10.0)
[2021-06-06 06:24] LABS: INR 1.02; PROTHROMBIN TIME 13.8 SECONDS (12.7-14.5)
[2021-06-06 06:25] LABS: PARTIAL THROMBOPLASTIN TIME 29.2 SECONDS (25.9-37.0)
[2021-06-06] MEDS: guaiFENesin/CODEINE SYRUP 5 ML UDC PO SCH ×3 (06:25→17:17)
[2021-06-06] MEDS: IBUPROFEN 600MG TAB PO SCH ×3 (06:25→17:18)
[2021-06-06 06:27] LABS: ALBUMIN 2.7 GM/DL (3.2-5.2); ALT/SGPT 33 U/L (12-78); BILIRUBIN,DIRECT 0.2 MG/DL (0.0-0.2); BILIRUBIN,TOTAL 0.6 MG/DL (0.2-1.0); BLOOD UREA NITROGEN 17 MG/DL (7-18); CALCIUM LEVEL 8.7 MG/DL (8.5-10.1); CARBON DIOXIDE LEVEL 31 MEQ/L (21-32); CHLORIDE LEVEL 111 MEQ/L (98-107); CPK CREATINE PHOSPHOKINASE 284 U/L (26-192); CREATININE FOR GFR 0.42 MG/DL (0.55-1.30); FERRITIN 679 NG/ML (8-252); GLOMERULAR FILTRATION RATE > 60.0 (>51); GLUCOSE, FASTING 93 MG/DL (70-100); LDH LACTATE DEHYDROGENASE 321 U/L (84-246); NT-PRO BNP 100 PG/ML (<125); POTASSIUM SERUM 4.1 MEQ/L (3.5-5.1); SODIUM LEVEL 147 MEQ/L (136-145); TOTAL PROTEIN 6.1 GM/DL (6.4-8.2)
[2021-06-06 08:29] VITALS: BP 106/56
[2021-06-06] MEDS: ENOXAPARIN 40MG/0.4ML SYRINGE (J1650 PER 10MG) SC SCH (08:30)
[2021-06-06] MEDS: dexameTHASONE 4 MG/ML 1ML VIAL (J1100 PER 1MG) IV SCH (08:31)
[2021-06-06] MEDS: BARICITINIB 2MG TABLET (OLUMIANT) FOR EUA PO SCH (08:31)
[2021-06-06 12:15] VITALS: BP 144/72
--- NOTE | 2021-06-06 12:16 | IPNPDOC ---
Text Note Date of Service The patient was seen on 06/06/21. NOTE SUBJECTIVE: -Feels better per patient report, sitting up, conversational though with some dyspnea and productive cough -No dede pain, palpitations, fevers, chills, nausea, vomiting. -Continues to be in vapotherm at 30L/75% OBJECTIVE: Vitals: see below Constitutional: Awake and alert x 3, NAD HEENT: NCAT, EOMI, MMM Respiratory: Diminished breath sounds bilaterally, with scattered transmitted upper airway sounds, and scattered crackles or wheezing Cardiovascular: RRR , S1 and S2 are normal, no noted m/r/g Gastrointestinal: Obese, soft, normoactive sounds, NTND Ext: No LE edema, WWP Neurologic: No focal neurological deficit. Psych: A&O x3, normal affect LABORATORY DATA: Reviewed WBC 10.9 Hgb 12.3 platelets 378 Na 147 K 4.1 Cr 0.42 IMAGING: CXR 06/04/21: Extensive and worsening bilateral alveolar and interstitial infiltrates. CTA chest 06/01/21: No CT evidence of pulmonary embolism. Diffuse bilateral infiltrates. MICROBIOLOGY: Please see below. ASSESSMENT: 56-year-old female presents with shortness of breath found to have Covid 19 infection requiring supplemental oxygen admitted for further medical management. PLAN: Acute hypoxic respiratory failure 2/2 Covid 19 PNA -Supplemental O2, to goal >90%, currently requiring Vapotherm -imaging as noted above, no PE -Encourage awake proning -Procalcitonin and BNP were low -C/w IV Decadron, baricitinib, inhalers ATC and PRN, IS Q2H . -s/p 5d of remdesevir -C/w labs per COVID protocol, and droplet precautions -apparently was seen by pulm per last attending notes Deconditioning secondary to acute illness -PT/OT DVT prophylaxis: Lovenox DISPOSITION: Low threshold for worsening so will keep in COVID ICU for now, pulmonary was consulted. VS,Fishbone, I+O VS, Fishbone, I+O Laboratory Tests 06/06/21 05:53 Vital Signs Date Time Temp Pulse Resp B/P (MAP) Pulse Ox O2 Delivery O2 Flow Rate FiO2 06/06/21 07:39 95 HVNI-Vapotherm 30.0 90 06/06/21 06:00 98.3 46 20 110/68 (82) I&O- Last 24 Hours up to 6 AM 06/06/21 06:00 Intake Total 597 ml Output Total 600 ml Balance -3 ml ESTEVAN VENTURA MD Jun 06, 2021 07:49
[2021-06-06 17:18] VITALS: BP 119/64
[2021-06-06] MEDS: BENZONATATE 100MG CAPSULE PO PRN (19:54)
[2021-06-06] MEDS: hydrOXYzine 25 MG TAB PO PRN (19:55)
[2021-06-06 22:00] VITALS: BP 122/73
[2021-06-07] MEDS: IBUPROFEN 600MG TAB PO SCH ×4 (00:02→17:42)
[2021-06-07] MEDS: guaiFENesin/CODEINE SYRUP 5 ML UDC PO SCH ×4 (00:02→17:42)
[2021-06-07] MEDS: hydrOXYzine 25 MG TAB PO PRN ×2 (00:02→21:46)
[2021-06-07] MEDS: COMBIVENT RESPIMAT 100-20MCG INHALER 4GM INH SCH ×4 (02:00→20:01)
[2021-06-07 04:00] VITALS: BP 117/66
[2021-06-07 06:00] VITALS: BP 123/68
[2021-06-07 08:23] VITALS: BP 100/62
[2021-06-07] MEDS: ENOXAPARIN 40MG/0.4ML SYRINGE (J1650 PER 10MG) SC SCH (08:23)
[2021-06-07] MEDS: BARICITINIB 2MG TABLET (OLUMIANT) FOR EUA PO SCH (08:24)
[2021-06-07] MEDS: dexameTHASONE 4 MG/ML 1ML VIAL (J1100 PER 1MG) IV SCH (08:24)
[2021-06-07 12:37] VITALS: BP 145/70
--- NOTE | 2021-06-07 16:24 | IPNPDOC ---
Text Note Date of Service The patient was seen on 06/07/21. NOTE SUBJECTIVE: -Continues to improve with extended periods out of bed, now on HFNC off vapotherm and downgraded to medsurg -No chest pain, palpitations, fevers, chills, nausea, vomiting. OBJECTIVE: Vitals: see below Constitutional: Awake and alert x 3, NAD HEENT: NCAT, EOMI, MMM Respiratory: Diminished breath sounds bilaterally, with scattered crackles, no wheezing Cardiovascular: RRR , S1 and S2 are normal, no noted m/r/g Gastrointestinal: Obese, soft, normoactive sounds, NTND Ext: No LE edema, WWP Neurologic: No focal neurological deficit. Psych: A&O x3, normal affect LABORATORY DATA: Reviewed IMAGING: CXR 06/04/21: Extensive and worsening bilateral alveolar and interstitial infiltrates. CTA chest 06/01/21: No CT evidence of pulmonary embolism. Diffuse bilateral infiltrates. MICROBIOLOGY: Please see below. ASSESSMENT: 56-year-old female presents with shortness of breath found to have Covid 19 infection requiring supplemental oxygen admitted for further medical management. PLAN: Acute hypoxic respiratory failure 2/2 Covid 19 PNA -Supplemental O2, to goal >90%, currently on HFNC -imaging as noted above, no PE -Encourage awake proning -Procalcitonin and BNP were low -C/w IV dexamethasone baricitinib, inhalers ATC and PRN, IS Q2H . -s/p 5d of remdesevir -C/w CBC, BMP and mag, and droplet precautions Deconditioning secondary to acute illness -PT/OT DVT prophylaxis: Lovenox DISPOSITION: medsurg VS,Fishbone, I+O VS, Fishbone, I+O Vital Signs Date Time Temp Pulse Resp B/P (MAP) Pulse Ox O2 Delivery O2 Flow Rate FiO2 06/07/21 12:37 97.1 60 23 145/70 (95) 92 Nasal Cannula 5.0 06/07/21 08:30 50 I&O- Last 24 Hours up to 6 AM 06/07/21 06:00 Intake Total 1620 ml Output Total 895 ml Balance 725 ml ESTEVAN VENTURA MD Jun 07, 2021 16:24
[2021-06-07 19:59] VITALS: BP 119/63
[2021-06-07 20:50] VITALS: BP 118/58
[2021-06-07] MEDS: ACETAMINOPHEN TAB 650MG DOSE (2X325MG) PO PRN (21:46)
[2021-06-07] MEDS: BENZONATATE 100MG CAPSULE PO PRN (21:46)
[2021-06-08] MEDS: guaiFENesin/CODEINE SYRUP 5 ML UDC PO SCH ×5 (00:05→23:14)
[2021-06-08] MEDS: IBUPROFEN 600MG TAB PO SCH ×5 (00:06→23:14)
[2021-06-08] MEDS: COMBIVENT RESPIMAT 100-20MCG INHALER 4GM INH SCH ×4 (02:12→20:58)
[2021-06-08 04:00] VITALS: BP 148/67
[2021-06-08 07:50] LABS: HEMATOCRIT 38.2 % (36.0-47.0); HEMOGLOBIN 11.6 g/dl (12.0-15.5); MEAN CORPUSCULAR HEMOGLOBIN 19.3 pg (27.0-33.0); MEAN CORPUSCULAR HGB CONC 30.4 g/dl (32.0-36.5); MEAN CORPUSCULAR VOLUME 63.6 fl (80.0-96.0); PLATELET COUNT, AUTOMATED 360 10^3/uL (150-450); RED BLOOD COUNT 6.01 10^6/uL (4.00-5.40); WHITE BLOOD COUNT 10.3 10^3/uL (4.0-10.0)
[2021-06-08 08:08] LABS: BLOOD UREA NITROGEN 17 MG/DL (7-18); CARBON DIOXIDE LEVEL 28 MEQ/L (21-32); CHLORIDE LEVEL 110 MEQ/L (98-107); CREATININE FOR GFR 0.35 MG/DL (0.55-1.30); GLOMERULAR FILTRATION RATE > 60.0 (>51); GLUCOSE, FASTING 79 MG/DL (70-100); POTASSIUM SERUM 3.4 MEQ/L (3.5-5.1); SODIUM LEVEL 144 MEQ/L (136-145)
[2021-06-08 08:09] LABS: CALCIUM LEVEL 8.5 MG/DL (8.5-10.1); MAGNESIUM LEVEL 2.3 MG/DL (1.8-2.4)
[2021-06-08] MEDS: dexameTHASONE 4 MG/ML 1ML VIAL (J1100 PER 1MG) IV SCH (09:01)
[2021-06-08] MEDS: ENOXAPARIN 40MG/0.4ML SYRINGE (J1650 PER 10MG) SC SCH (09:01)
[2021-06-08] MEDS: BARICITINIB 2MG TABLET (OLUMIANT) FOR EUA PO SCH (09:01)
[2021-06-08 14:00] VITALS: BP 93/54
--- NOTE | 2021-06-08 14:54 | IPNPDOC ---
Text Note Date of Service The patient was seen on 06/08/21. NOTE SUBJECTIVE: -Continues to improve, now on 5L NC in medsurg -No chest pain, palpitations, fevers, chills, nausea, vomiting. OBJECTIVE: Vitals: see below Constitutional: Awake and alert x 3, NAD HEENT: NCAT, EOMI, MMM Respiratory: Diminished breath sounds bilaterally, no wheezing Cardiovascular: RRR , S1 and S2 are normal, no noted m/r/g Gastrointestinal: Obese, soft, normoactive sounds, NTND Ext: No LE edema, WWP Neurologic: No focal neurological deficit. Psych: A&O x3, normal affect LABORATORY DATA: Reviewed, stable IMAGING: CXR 06/04/21: Extensive and worsening bilateral alveolar and interstitial infiltrates. CTA chest 06/01/21: No CT evidence of pulmonary embolism. Diffuse bilateral infiltrates. MICROBIOLOGY: Please see below. ASSESSMENT: 56-year-old female presents with shortness of breath found to have Covid 19 infection requiring supplemental oxygen admitted for further medical management. PLAN: Acute hypoxic respiratory failure 2/2 Covid 19 PNA -Supplemental O2, to goal >90%, currently on HFNC -imaging as noted above, no PE -Encourage awake proning -Procalcitonin and BNP were low -C/w IV dexamethasone baricitinib, inhalers ATC and PRN, IS Q2H . -s/p 5d of remdesevir -C/w CBC, BMP and mag, and droplet precautions Deconditioning secondary to acute illness -PT/OT DVT prophylaxis: Lovenox DISPOSITION: [facility] [place] VS,Fishbone, I+O VS, Fishbone, I+O Laboratory Tests 06/08/21 06:43 Vital Signs Date Time Temp Pulse Resp B/P (MAP) Pulse Ox O2 Delivery O2 Flow Rate FiO2 06/08/21 06:00 6.0 06/08/21 04:00 98.1 76 19 148/67 (94) 96 High Flow Cannula 06/07/21 08:30 50 I&O- Last 24 Hours up to 6 AM 06/08/21 06:00 Intake Total 1395 ml Output Total 475 ml Balance 920 ml ESTEVAN VENTURA MD Jun 08, 2021 09:59
[2021-06-08 20:00] VITALS: BP 122/58
[2021-06-08] MEDS: ACETAMINOPHEN TAB 650MG DOSE (2X325MG) PO PRN (20:42)
[2021-06-08] MEDS: BENZONATATE 100MG CAPSULE PO PRN (20:42)
[2021-06-09] MEDS: COMBIVENT RESPIMAT 100-20MCG INHALER 4GM INH SCH ×3 (01:38→14:00)
[2021-06-09 04:00] VITALS: BP 156/83
[2021-06-09] MEDS: guaiFENesin/CODEINE SYRUP 5 ML UDC PO SCH ×2 (05:43→11:49)
[2021-06-09] MEDS: IBUPROFEN 600MG TAB PO SCH ×2 (05:43→11:49)
[2021-06-09 07:05] LABS: HEMATOCRIT 37.5 % (36.0-47.0); HEMOGLOBIN 11.4 g/dl (12.0-15.5); MEAN CORPUSCULAR HEMOGLOBIN 19.1 pg (27.0-33.0); MEAN CORPUSCULAR HGB CONC 30.4 g/dl (32.0-36.5); MEAN CORPUSCULAR VOLUME 62.8 fl (80.0-96.0); PLATELET COUNT, AUTOMATED 372 10^3/uL (150-450); RED BLOOD COUNT 5.97 10^6/uL (4.00-5.40); WHITE BLOOD COUNT 10.8 10^3/uL (4.0-10.0)
[2021-06-09 07:12] LABS: BLOOD UREA NITROGEN 18 MG/DL (7-18); CALCIUM LEVEL 8.3 MG/DL (8.5-10.1); CARBON DIOXIDE LEVEL 28 MEQ/L (21-32); CHLORIDE LEVEL 109 MEQ/L (98-107); CREATININE FOR GFR 0.43 MG/DL (0.55-1.30); GLOMERULAR FILTRATION RATE > 60.0 (>51); GLUCOSE, FASTING 87 MG/DL (70-100); MAGNESIUM LEVEL 2.2 MG/DL (1.8-2.4); POTASSIUM SERUM 3.3 MEQ/L (3.5-5.1); SODIUM LEVEL 143 MEQ/L (136-145)
[2021-06-09] MEDS ORDERED: BENZ-18 PO (09:06)
[2021-06-09] MEDS ORDERED: ALBU8.5H INH (09:06)
[2021-06-09] MEDS ORDERED: COMBAER6 INH (09:06)
[2021-06-09] MEDS ORDERED: ECOT81TA5 PO (09:22)
[2021-06-09] MEDS: dexameTHASONE 4 MG/ML 1ML VIAL (J1100 PER 1MG) IV SCH (10:07)
[2021-06-09] MEDS: ENOXAPARIN 40MG/0.4ML SYRINGE (J1650 PER 10MG) SC SCH (10:07)
[2021-06-09] MEDS: BARICITINIB 2MG TABLET (OLUMIANT) FOR EUA PO SCH (11:48)
[2021-06-09 12:00] VITALS: BP 136/80
--- NOTE | 2021-06-09 12:45 | DS.PDOC ---
Discharge Summary General Date of Admission May 30, 2021 at 23:30 Date of Discharge 06/09/2021 Attending Physician: ESTEVAN VENTURA MD Discharge Summary PROCEDURES PERFORMED DURING STAY: None ADMITTING DIAGNOSES: Covid-19 PNA Hypoxia DISCHARGE DIAGNOSES: Covid-19 PNA Acute hypoxemic respiratory failure COMPLICATIONS/CHIEF COMPLAINT: Covid-19; Hypoxia; Pneumonia. HISTORY OF PRESENT ILLNESS: 56-year-old W who presented because of a 4-5 day history of gradually worsening shortness of breath associated with a cough. She endorsed recent history of RSV infection amongst coworkers and denied any fevers or chills. Her shortness of breath had worsened to the point where she felt she needed to come to the emergency department. HOSPITAL COURSE: In the ED she was saturating around 88% at rest and required supplemental oxygen. She improved with 4 L of oxygen by nasal cannula to 92-94%. Chest x-ray shows bilateral infiltrates and respiratory panel was positive for covid-19. She denied any fevers or chills. She was admitted for covid-19 PNA with acute hypoxemic respiratory failure and was started on remdesevir, dexamethasone and baricitinib. Her course was c/b worsening hypoxemia to a degree that she required Vapotherm and transfer to the ICU. Her hypoxemia finally improved and she is now on 3L NC and is now being discharged home on supplemental oxygen that I suspect she will come off within the next 7-14d as she begins to move around more and her covid-19 PNA continues to improve. I am also prescribing her symbicort, PRN albuterol, ASA 81 for 30d, tessalon perles for cough and is to self isolate until all symptoms resolve and will have a PCP follow up within 7d. DISCHARGE MEDICATIONS: Please see below. ALLERGIES: Please see below. PHYSICAL EXAMINATION ON DISCHARGE: VITAL SIGNS: Please see below. Constitutional: Awake and alert x 3, NAD HEENT: NCAT, EOMI, MMM Respiratory: Diminished breath sounds bilaterally, no wheezing, no crackles, 3L NC Cardiovascular: RRR , S1 and S2 are normal, no noted m/r/g Gastrointestinal: Obese, soft, normoactive sounds, NTND Ext: No LE edema, WWP Neurologic: No focal neurological deficit. Psych: A&O x3, normal affect LABORATORY DATA: Please see below. IMAGING: CXR 06/04/21: Extensive and worsening bilateral alveolar and interstitial infiltrates. CTA chest 06/01/21: No CT evidence of pulmonary embolism. Diffuse bilateral infiltrates. PROGNOSIS: good ACTIVITY: As tolerated DIET: Regular DISCHARGE PLAN: Home w/ services DISPOSITION: Home DISCHARGE INSTRUCTIONS: Continue self isolation until full resolution of symptoms. PCP within 7d. BID symbicort, PRN albuterol, ASA 81 QD ITEMS TO FOLLOWUP ON ON OUTPATIENT: Resolution of covid-19 PNA Acute hypoxemic failure resolution DISCHARGE CONDITION: Stable TIME SPENT ON DISCHARGE: 44 minutes. Vital Signs/I&Os Vital Signs Date Time Temp Pulse Resp B/P (MAP) Pulse Ox O2 Delivery O2 Flow Rate FiO2 06/09/21 04:00 97.1 76 18 156/83 (107) 96 High Flow Cannula 3.0 06/07/21 08:30 50 I&O- Last 24 Hours up to 6 AM 06/09/21 05:59 Intake Total 1565 ml Balance 1565 ml Laboratory Data Labs 24H Laboratory Tests 2 06/09/21 06:27: Nucleated Red Blood Cells % (auto) 0.0, Anion Gap 6L, Glomerular Filtration Rate > 60.0, Calcium Level 8.3L, Magnesium Level 2.2 CBC/BMP Laboratory Tests 06/09/21 06:27 Microbiology Microbiology 05/30/21 Respiratory Virus Panel (PCR) ([facility]) - Final, Complete SARS-CoV-2 (COVID 19) 05/30/21 Blood Culture - Final, Complete NO GROWTH AFTER 5 DAYS 05/30/21 Blood Culture - Final, Complete NO GROWTH AFTER 5 DAYS Discharge Medications Scheduled Aspirin (Ecotrin) 81 Mg Tablet.dr, 1 TAB PO DAILY for pain Ipratropium/Albuterol Sulfate (Combivent Respimat 20-100 Mcg) 4 Gm Mist.inhal, 2 PUFF INH RQ6H Scheduled PRN Albuterol Sulfate (Albuterol Sulfate Hfa) 8.5 Gm Hfa.aer.ad, 2 PUFFS INH Q6HP PRN for SHORTNESS OF BREATH Benzonatate (Benzonatate) 100 Mg Capsule, 100 MG PO TIDP PRN for COUGH Guaifenesin/Dextromethorphan (Mucinex Fast-Max Dm Max Liquid) 180 Ml Liquid, 20 ML PO Q4H PRN for CONGESTION/COUGH, (Reported) Allergies Coded Allergies: No Known Allergies (Unverified , 05/30/21) ESTEVAN VENTURA MD Jun 09, 2021 09:21
== END 2021-06-09 15:20 | disposition home or self-care (01) | DRG 177 ==
LOC: M ED 19:36 → EDBD 19:36 → M ED INP 23:30 → ENRESERV 23:49 → M 4MAIN 05-31 01:31 → M ICU 06-02 12:27 → M 4MAIN 06-07 20:19
PROVIDERS: ADMIT Family Medicine; ATTEND Internal Medicine
DX: U07.1 COVID-19 (principal); J96.01 Acute respiratory failure with hypoxia; E66.01 Morbid (severe) obesity due to excess calories; E11.9 Type 2 diabetes mellitus without complications; D69.6 Thrombocytopenia, unspecified; E87.6 Hypokalemia

== ENCOUNTER → 2023-03-18 | Outpatient (CLI) | payer OTHER ==
[~2023-03-18] MED LIST changes: +ALBU8.5H INH; +BENZ-18 PO; +COMBAER6 INH; +ECOT81TA5 PO; +MUCI1LIQ3 PO
== END ==
LOC: M WHC 06:36
PROVIDERS: ATTEND Family Medicine
DX: R22.41 Localized swelling, mass and lump, right lower limb (principal)

== ENCOUNTER → 2024-05-19 | Outpatient (CLI) | payer OTHER | LOC: M WHC 06:32 | PROVIDERS: ATTEND Student in an Organized Health Care Education/Training Program | DX: Z12.31 Encounter for screening mammogram for malignant neoplasm of breast (principal) ==